=== PATIENT | female | born 1935 | race Caucasian/White ===

== ENCOUNTER 2019-06-05 17:19 | Inpatient (IN) | payer MEDICARE, MEDICAID ==
[~2019-06-05] VITALS: Ht 160 cm; Wt 77.0 kg
--- NOTE | 2019-06-05 21:52 | HPEPDOC ---
[facility] Medical History & Physical Date of Admission Jun 05, 2019 Date of Service: Jun 05, 2019 Attending Physician: RUBEN CRAIG MD History and Physical TIME OF SERVICE: 11:25 PM CHIEF COMPLAINT: Pain with urination HISTORY OF PRESENT ILLNESS: This is an 83-year-old female who initially presented to [facility] with complaints of burning with urination for 3 or 4 days associated with blood in her urine for 2 days. She denies having associated stomach pain, fever, chills, nausea, vomiting, diarrhea, or shortness of breath. She has a chronic cough which she attributes to COPD that has not changed from her baseline. At [facility] she received 2 units of PRBCs; CT of the abdomen identified a possible mass in the bladder, therefore, they requested transfer for urological eval. REVIEW OF SYSTEMS: 12 point review of systems negative except as listed in HPI PAST MEDICAL/ SURGICAL HISTORY: COPD Chronic HTN Dyslipidemia Hyperthyroidism Cataract surgery SOCIAL HISTORY: She smokes. She doesn't drink FAMILY HISTORY: She denies having a family history of bladder or kidney problems ALLERGIES: Please see below. HOME MEDICATIONS: Please see below. PHYSICAL EXAMINATION: Vital Signs Date Time Temp Pulse Resp B/P (MAP) Pulse Ox O2 Delivery O2 Flow Rate FiO2 06/05/19 22:00 97.8 104 18 124/69 (87) 95 Nasal Cannula 3.0 GEN: well-nourished / well developed/ NAD INTEGUMENT: not flushed HEENT: NCAT / lips acyanotic /mucus membranes moist and pink CVS: RRR/NMRG/ radial pulses intact / no lower extremity edema LUNGS: end expiratory rhonchi ABDOMEN: Contour (obese) / soft & not tender with palpation MSK/EXTREMITIES: range of motion intact in all 4 extremities NEURO: CN 2-12 are grossly intact / speech is not dysarthric PSYCH: alert and oriented to person place and time/ able to understand and follow all commands LABORATORY DATA: Laboratory Tests IMAGING: see HPI ASSESSMENT: Ms. Villeda is an 83-year-old with history of COPD, HTN, hyperthyroidism and dyslipidemia who is admitted for evaluation of hematuria. PLAN: 1. Hematuria with possible bladder mass Risk factor for bladder CA is tobacco abuse Plan: Admit to medical floor/urology consult/nothing by mouth with IV fluids for possible surgery tomorrow / hold ASA / c/w levofloxacin 2. Anemia 2/2 hematuria. Iron studies unlikely to be accurate post transfusion - f/u CBC and keep Hg >7 3. Stable COPD - budesonide, ipratropium/albuterol / incentive spirometer 4. Chronic HTN - HTCZ, losartan 5. Hyperthyroidism - methimazole 6. Dyslipidemia - pravastatin 7. Tobacco abuse - nicotine patch / smoking cessation education DVT PROPHYLAXIS: SCDs DISPOSITION: likely home after more than 2 midnight's stay / will consult PT for early mobilization to reduce the risk of deconditioning Home Medications Scheduled Aspirin (Aspirin EC) 81 Mg Tablet.dr, 81 MG PO DAILY Budesonide (Budesonide) 0.5 Mg/2 Ml Ampul.neb, 0.5 MG INH BID STARTED AT [facility] Calcium Carbonate/Vitamin D3 (Calcium 500-Vit D3 400 Tablet) 1 Each Tablet, 1 TAB PO DAILY Hydrochlorothiazide (Hydrochlorothiazide) 25 Mg Tablet, 25 MG PO DAILY Ipratropium/Albuterol Sulfate (Iprat-Albut 0.5-3(2.5) mg/3 ml) 3 Ml Ampul.neb, 1 JC INH BID STARTED AT [facility] Levofloxacin in Dextrose 5 % (Levofloxacin 750 mg/150 ml-D5w) 750 Mg/150 Ml Piggyback, 750 MG IV ASDIRECTED EVERY 48 HOURS - STARTED AT [facility] Losartan Potassium (Losartan Potassium) 100 Mg Tablet, 100 MG PO DAILY Magnesium Oxide (Magnesium Oxide) 400 Mg Tablet, 400 MG PO DAILY Methimazole (Methimazole) 5 Mg Tablet, 5 MG PO DAILY [place]-3 Fatty Acids/Fish Oil (Fish Oil 1,000 mg Capsule) 1 Each Capsule, 1,000 MG PO DAILY Omeprazole (Omeprazole) 20 Mg Capsule.dr, 20 MG PO DAILY Potassium Chloride (Potassium Chloride) 10 Meq Capsule.er, 10 MEQ PO BID Pravastatin Sodium (Pravastatin Sodium) 40 Mg Tablet, 40 MG PO DAILY Scheduled PRN Ipratropium/Albuterol Sulfate (Combivent Respimat 20-100 Mcg) 4 Gm Mist.inhal, 1 PUFF INH QID PRN for SHORTNESS OF BREATH Ipratropium/Albuterol Sulfate (Iprat-Albut 0.5-3(2.5) mg/3 ml) 3 Ml Ampul.neb, 1 JC INH Q6H PRN for SHORTNESS OF BREATH STARTED AT [facility] Allergies Coded Allergies: atorvastatin (Verified Adverse Reaction, Mild, MUSCLE ACHES, 06/05/19) A-FIB/CHADSVASC A-FIB History Current/History of A-Fib/PAF?: No Current PO Anticoag Therapy: No RUBEN CRAIG MD Jun 05, 2019 21:52
[2019-06-05 22:00] VITALS: BP 124/69
[2019-06-05] MEDS ORDERED: ACETAMINOPHEN TAB 650MG DOSE (2X325MG) PO PRN (22:00)
[2019-06-05] MEDS ORDERED: LOSA100T50 PO (22:06)
[2019-06-05] MEDS ORDERED: HYDR25TAB PO (22:06)
[2019-06-05] MEDS ORDERED: POTA10CA32 PO (22:06)
[2019-06-05] MEDS ORDERED: METH25TAB PO (22:06)
[2019-06-05] MEDS ORDERED: ASPI81TA26 PO (22:06)
[2019-06-05] MEDS ORDERED: MAGN400T2 PO (22:06)
[2019-06-05] MEDS ORDERED: PRAV40TA2 PO (22:06)
[2019-06-05] MEDS ORDERED: CALC500T25 PO (22:06)
[2019-06-05] MEDS ORDERED: COMBAER6 INH (22:06)
[2019-06-05] MEDS ORDERED: OMEP-218 PO (22:06)
[2019-06-05] MEDS ORDERED: FISH1000 PO (22:06)
[2019-06-05 22:22] LABS: HEMATOCRIT 30.3 % (36.0-47.0); HEMOGLOBIN 9.2 g/dl (12.0-15.5); MEAN CORPUSCULAR HEMOGLOBIN 22.4 pg (27.0-33.0); MEAN CORPUSCULAR HGB CONC 30.4 g/dl (32.0-36.5); MEAN CORPUSCULAR VOLUME 73.9 fl (80.0-96.0); PLATELET COUNT, AUTOMATED 285 10^3/uL (150-450)
[2019-06-05] MEDS ORDERED: IPRA0.00 INH ×2 (22:24)
[2019-06-05] MEDS ORDERED: BUDE0.5S6 INH (22:24)
[2019-06-05] MEDS ORDERED: LEVO1INJ27 IV (22:24)
[2019-06-05 22:33] LABS: INR 1.12; PROTHROMBIN TIME 14.1 SECONDS (11.8-14.0)
[2019-06-05 22:46] LABS: ALBUMIN 2.7 GM/DL (3.2-5.2); BILIRUBIN,TOTAL 0.8 MG/DL (0.2-1.0); CALCIUM LEVEL 7.9 MG/DL (8.8-10.2); CREATININE FOR GFR 1.45 MG/DL (0.55-1.30); GLOMERULAR FILTRATION RATE 36.9 (>32); POTASSIUM SERUM 4.7 MEQ/L (3.5-5.1); TOTAL PROTEIN 5.8 GM/DL (6.4-8.2)
--- NOTE | 2019-06-05 23:07 | SMCUROLCON ---
Urology Consultation General Date of Consultation 06/05/19 Reason For Consultation This patient is seen for Hematuria. History of Present Illness This is an 83 y/o F w/ a PMH significant for COPD, HTN, and HL, presenting as a transfer from OSH for gross hematuria. The patient notes that she started having hematuria 2 days ago and had never had this previously. She also noted mild dysuria at the time. She is a current smoker, noting that she has smoked for several years but quit for a brief period. At OSH, her Hb trended down from 9.7 yesterday to 7.9 today. She was transfused 2u PRBC and given the ongoing hematuria, a transfer was requested. She has no prior urologic hx. A noncontrast CT A/P was done prior to transfer which was negative for kidney stones, but notable for b/l renal cysts and a collection of material at the base of the bladder. Past Medical History Medical History see HPI Surgical Hstory cholecystectomy Medications Current Medications Current Medications Medications (Trade) Dose Ordered Sig/Dong Route PRN Reason Start Time Stop Time Status Last Admin Dose Admin Acetaminophen (Tylenol Tab) 650 mg Q4H PRN PO PAIN OR FEVER 06/05/19 22:00 Docusate Sodium (Colace) 100 mg BID PO 06/06/19 09:00 Home Med (Med Rec Complete!) ASDIRECTED XX 06/05/19 22:30 06/05/19 22:26 DC Lactated Ringer's 1,000 ml @ 70 mls/hr [id number] IV 06/05/19 22:00 Allergies Allergies: Coded Allergies: atorvastatin (Verified Adverse Reaction, Mild, MUSCLE ACHES, 06/05/19) Review of Systems Constitutional: Denies: Fever, Chills, Sweats, Weakness, Malaise ENT: Denies: Head Aches, Sore Throat, Epistaxis Skin: Denies: Rash, Lesions, Breakdown, Nail Changes Pulmonary: Reports: Cough Cardiovascular: Denies Chest Pain, Denies Palpitations Gastrointestinal: Denies: Nausea, Vomiting, Abdominal Pain Genitourinary: Reports: Dysuria, Hematuria Musculoskeletal: Denies: Neck Pain, Back Pain Neurological: Denies: Weakness, Numbness, Incoordination, Change in Speech Psych: Reports: Mood Normal Physical Examination General Exam: Alert, Cooperative, No Acute Distress ENT EXAM: Atraumatic Chest Exam: Normal air movement Heart Exam: Rate Normal, Regular Rhythm Abdomen Exam: Soft; No: Tenderness, Mass Female Exam 16Fr catheter in place which appears clotted off; bright red urine in drainage bag Skin Exam: Nl turgor and temperature Neuro Exam: Normal Speech Psych Exam: Mental status NL, Mood NL Laboratory Data 24H Labs Laboratory Tests 2 06/05/19 22:10: Nucleated Red Blood Cells % (auto) 0.0, Prothrombin Time 14.1H, Prothromb Time International Ratio 1.12, Anion Gap 6L, Glomerular Filtration Rate 36.9, Calcium Level 7.9L, Iron Level 188H, Total Iron Binding Capacity 285, Transferrin % Saturation 66.0H, Ferritin 6L, Total Bilirubin 0.8, Aspartate Amino Transf ( T/SGOT) 13, Alanine Aminotransferase (ALT/SGPT) 13, Alkaline Phosphatase 86, Total Protein 5.8L, Albumin 2.7L, Albumin/Globulin Ratio 0.87L CBC/BMP Laboratory Tests 06/05/19 22:10 Assessment This is an 83 y/o F transferred from OSH for gross hematuria and drop in Hb. Repeat Hb here is 9.2. I changed out her catheter for a 24Fr 3-way catheter and manually irrigated the bladder w/ approximately 200cc of normal saline. I did not get any clots out. CBI was started and the catheter appeared to drain well. The cause of her hematuria is either a UTI or bladder tumor. Given her long smoking hx and severity of hematuria, I am concerned it is a bladder tumor and she might have to go to the OR to stop the hematuria. Plan - cont abx for possible UTI - cont CBI and titrate irrigation so that the outflow is pink or clearer - recommend checking Hb q6 - NPO at midnight - patient added on for possible cystoscopy, clot evacuation, resection of bladder tumor tomorrow KRYSTIN FORRESTER MD Jun 05, 2019 23:07
[2019-06-05] MEDS: LR 1,000 ML IV SCH (23:13)
[2019-06-06] VITALS (10 sets, daily range): BP systolic 102–110; BP diastolic 49–57
[2019-06-06] MEDS ORDERED: IPRATROPIUM 0.5MG/ALBUTEROL 2.5MG INH SOL UD 3ML (DUONEB)(J7620) INH PRN (01:30)
[2019-06-06 06:30] LABS: HEMATOCRIT 27.9 % (36.0-47.0); HEMOGLOBIN 8.6 g/dl (12.0-15.5); MEAN CORPUSCULAR HEMOGLOBIN 22.8 pg (27.0-33.0); MEAN CORPUSCULAR HGB CONC 30.8 g/dl (32.0-36.5); PLATELET COUNT, AUTOMATED 275 10^3/uL (150-450); RED BLOOD COUNT 3.77 10^6/uL (4.00-5.40); WHITE BLOOD COUNT 9.6 10^3/uL (4.0-10.0)
[2019-06-06 06:56] LABS: CALCIUM LEVEL 7.7 MG/DL (8.8-10.2); CREATININE FOR GFR 1.02 MG/DL (0.55-1.30); GLOMERULAR FILTRATION RATE 55.4 (>32); MAGNESIUM LEVEL 2.2 MG/DL (1.8-2.4)
--- NOTE | 2019-06-06 07:33 | IPNPDOC ---
Subjective Review oF Systems Chief Complaint The patient is a 83-year-old female admitted with a reason for visit of Hematuria. Events since Last Encounter No acute events o/n. Patient denies pain. Catheter drained well o/n w/o need for manual irrigation. Objective Physical Examination General Exam: Alert, Cooperative, No Acute Distress ENT EXAM: Atraumatic Chest Exam: Normal air movement Heart Exam: Positive: Rate Normal ABDOMEN EXAM: Soft; No: Tenderness Neuro Exam: Normal Speech Psych Exam: Mental status NL, Mood NL Other physical findings 3-way catheter in place w/ clear yellow output and CBI on minimal drip Vital Signs/I&O Vital Signs Date Time Temp Pulse Resp B/P (MAP) Pulse Ox O2 Delivery O2 Flow Rate FiO2 06/06/19 06:00 98.4 88 18 110/54 (72) 94 Nasal Cannula 3.0 I&O- Last 24 Hours up to 6 AM 06/06/19 05:59 Intake Total 300 ml Output Total 500 ml Balance -200 ml Laboratory Data Labs 24H Laboratory Tests 2 06/05/19 22:10: Nucleated Red Blood Cells % (auto) 0.0, Prothrombin Time 14.1H, Prothromb Time International Ratio 1.12, Anion Gap 6L, Glomerular Filtration Rate 36.9, Calcium Level 7.9L, Iron Level 188H, Total Iron Binding Capacity 285, Transferrin % Saturation 66.0H, Ferritin 6L, Total Bilirubin 0.8, Aspartate Amino Transf (AST/SGOT) 13, Alanine Aminotransferase (ALT/SGPT) 13, Alkaline Phosphatase 86, Total Protein 5.8L, Albumin 2.7L, Albumin/Globulin Ratio 0.87L 06/06/19 06:03: Nucleated Red Blood Cells % (auto) 0.0, Anion Gap 5L, Glomerular Filtration Rate 55.4, Calcium Level 7.7L, Magnesium Level 2.2 CBC/BMP Laboratory Tests 06/05/19 22:10 06/06/19 06:03 Assessment/Plan Date Seen The patient was seen on 06/06/19. Patient Summary This is an 83 y/o F transferred from [facility] last night for gross hematuria. Her urine is clearing up w/ minimal CBI. Hb this morning is 8.6 from 9.2 yesterday evening. I called [facility] lab for final result on her urine culture and it was reported as NO GROWTH. Plan/VTE VTE Prophylaxis Ordered?: Yes VTE Exclusion Mechanical Proph: N/A:VTE Prophy Ordered Plan - clamp CBI and monitor - if hematuria worsens, turn back on - keep NPO for now - possible OR later today for cystoscopy, clot evacuation, possible TURBT KRYSTIN FORRESTER MD Jun 06, 2019 07:33
[2019-06-06] MEDS: BUDESONIDE 0.5 MG/2 ML INHALATION SUSPENSION INH SCH ×2 (07:34→21:30)
[2019-06-06] MEDS: hydroCHLOROthiazide 25 MG TAB PO SCH (09:00)
[2019-06-06] MEDS: LOSARTAN 50 MG TAB PO SCH (09:00)
[2019-06-06] MEDS: NICOTINE 14 MG/24 HR TRANSDERMAL TD SCH (09:23)
[2019-06-06] MEDS: DOCUSATE SODIUM 100 MG CAP PO SCH ×2 (09:24→21:06)
[2019-06-06] MEDS: PRAVASTATIN 20 MG TAB PO SCH (09:24)
[2019-06-06] MEDS: POTASSIUM CHLORIDE 10 MEQ SR TABLET PO SCH ×2 (09:25→21:06)
[2019-06-06] MEDS: CALCIUM/VITAMIN D 500 MG TAB PO SCH (09:25)
[2019-06-06] MEDS: OMEPRAZOLE 20 MG CAP PO SCH (09:25)
[2019-06-06] MEDS: LR 1,000 ML IV SCH (13:02)
--- NOTE | 2019-06-06 16:47 | IPNPDOC ---
Text Note Date of Service The patient was seen on 06/06/19. NOTE Subjective: -No complaints Objective: GEN: well-nourished, NAD Skin: No lesions or rashes HEENT: NCAT, PERRLA, EOMI, anicteric, MMM CVS: RRR, no mrg LUNGS: CTAB ABDOMEN: Normoactive, soft, NTND Ext: WWP, no LE edema NEURO: CN 2-12 are grossly intact, speech not dysarthric, 5/5 strength throughout PSYCH: alert and oriented to person place and time/ able to understand and fol low all commands LABORATORY DATA: WBC 9.6 hgb 8.6 Cr 1.02 ASSESSMENT: Ms. Villeda is an 83-year-old with history of COPD, HTN, hyperthyroidism and dyslipidemia who is admitted for evaluation of hematuria. PLAN: 1. Hematuria with possible bladder mass -continue nothing by mouth with IV fluids -continue holding ASA -c/w levofloxacin -This morning urology clamped CBI and monitored as hematuria had improved -Plan as of this afternoon was to keep her NPO for possible cystoscopy, clot evacuation, possible TURBT 2. COPD - budesonide, ipratropium/albuterol / incentive spirometer 3. Chronic HTN - HTCZ, losartan 4. Hyperthyroidism - methimazole 5. Dyslipidemia - pravastatin 6. Tobacco abuse - nicotine patch / smoking cessation education DVT PROPHYLAXIS: SCDs DISPOSITION: ongoing urology evaluation, PT/OT pending, medsurg VS,Fishbone, I+O VS, Fishbone, I+O Laboratory Tests 06/05/19 22:10 06/06/19 06:03 Vital Signs Date Time Temp Pulse Resp B/P (MAP) Pulse Ox O2 Delivery O2 Flow Rate FiO2 06/06/19 14:00 98.4 84 17 108/57 (74) 94 Nasal Cannula 2.0 I&O- Last 24 Hours up to 6 AM 06/06/19 06:00 Intake Total 720 ml Output Total 1500 ml Balance -780 ml POPPY BUNDY MD Jun 06, 2019 16:47
[2019-06-06] MEDS ORDERED: ceFAZolin SOD 2 GM in IV 1 EA IV ONE (17:00)
[2019-06-06] MEDS ORDERED: ceFAZolin 2 GM/D5W 50 ML IV BAG (J0690 PER 500MG) As Ordered ONE (17:07)
[2019-06-06] MEDS ORDERED: ROCURONIUM BROMIDE 50 MG/5 ML VIAL As Ordered ONE (17:10)
[2019-06-06] MEDS ORDERED: PHENYLephrine HCL 500 MCG/5 ML (100MCG/ML) SYRINGE (J2370) As Ordered ONE (17:10)
[2019-06-06] MEDS ORDERED: LIDOCAINE 2% 100MG/5ML SDV (FOR ANES.) As Ordered ONE (17:10)
[2019-06-06] MEDS ORDERED: propofoL 200 MG/20 ML VIAL As Ordered ONE (17:10)
[2019-06-06] MEDS ORDERED: fentaNYL 100 MCG/2 ML INJECTION (J3010) As Ordered ONE ×2 (17:10→17:25)
[2019-06-06] MEDS ORDERED: MIDAZOLAM INJ 2MG/2ML VIAL (J2250 PER 1MG) As Ordered ONE (17:10)
[2019-06-06] MEDS ORDERED: dexameTHASONE 4 MG/ML 1ML VIAL (J1100 PER 1MG) As Ordered ONE (17:19)
[2019-06-06] MEDS ORDERED: ONDANSETRON 4MG/2ML VIAL As Ordered ONE (17:20)
[2019-06-06] MEDS ORDERED: SUGAMMADEX SODIUM 500 MG/5 ML VIAL (BRIDION) As Ordered ONE (17:24)
[2019-06-06] MEDS ORDERED: ACETAMINOPHEN 1000MG 100ML IV BTL (OFIRMEV) (J0131 PER 10MG) As Ordered ONE (17:26)
[2019-06-06] MEDS ORDERED: IPRATROPIUM 0.5MG/ALBUTEROL 2.5MG INH SOL UD 3ML (DUONEB)(J7620) As Ordered ONE (18:05)
[2019-06-06] MEDS ORDERED: IPRATROPIUM 0.5MG/ALBUTEROL 2.5MG INH SOL UD 3ML (DUONEB)(J7620) NEB SCH (18:15)
[2019-06-06] MEDS ORDERED: fentaNYL 100 MCG/2 ML INJECTION (J3010) IV PRN (18:15)
[2019-06-06] MEDS ORDERED: ONDANSETRON 4MG/2ML VIAL IV PRN (18:15)
[2019-06-06] MEDS ORDERED: oxyCODONE 5MG TAB PO PRN (18:15)
[2019-06-06] MEDS ORDERED: LR 1,000 ML IV SCH (18:15)
[2019-06-07 00:45] VITALS: BP 103/55
[2019-06-07 05:00] VITALS: BP 113/60
[2019-06-07] MEDS: BUDESONIDE 0.5 MG/2 ML INHALATION SUSPENSION INH SCH ×2 (07:09→20:21)
--- NOTE | 2019-06-07 08:36 | IPNPDOC ---
Subjective Review oF Systems Chief Complaint The patient is a 83-year-old female admitted with a reason for visit of Hematuria. Events since Last Encounter No acute events o/n. Denies pain. No n/v. No f/c/ns. Objective Physical Examination General Exam: Alert, Cooperative, No Acute Distress ENT EXAM: Atraumatic ABDOMEN EXAM: Soft; No: Tenderness Skin Exam: Nl turgor and temperature Neuro Exam: Normal Speech Psych Exam: Mental status NL, Mood NL Other physical findings catheter draining clear yellow urine Vital Signs/I&O Vital Signs Date Time Temp Pulse Resp B/P (MAP) Pulse Ox O2 Delivery O2 Flow Rate FiO2 06/07/19 05:00 97.6 79 17 113/60 (77) 96 Nasal Cannula 2.0 I&O- Last 24 Hours up to 6 AM 06/07/19 06:00 Intake Total 1860 ml Output Total 1250 ml Balance 610 ml Assessment/Plan Date Seen The patient was seen on 06/07/19. Patient Summary This is an 83 y/o F transferred from an OSH for gross hematuria and clot retention, now POD1 s/p cysto and bladder biopsies. Her cysto was negative for tumors or active bleeding. It was notable for an erythematous patch of tissue near the dome, which might be CIS. This was biopsied and cauterized. Since her hematuria has resolved, she is clear for discharge from the urologic standpoint. Plan/VTE VTE Prophylaxis Ordered?: Yes VTE Exclusion Mechanical Proph: N/A:VTE Prophy Ordered Plan - ok for discharge - patient should keep catheter in at discharge to aid in bladder healing - my office will schedule f/u next week for catheter removal and pathology results KRYSTIN FORRESTER MD Jun 07, 2019 08:36
[2019-06-07] MEDS: NICOTINE 14 MG/24 HR TRANSDERMAL TD SCH (08:37)
[2019-06-07] MEDS: PRAVASTATIN 20 MG TAB PO SCH (08:37)
[2019-06-07] MEDS: CALCIUM/VITAMIN D 500 MG TAB PO SCH (08:37)
[2019-06-07] MEDS: OMEPRAZOLE 20 MG CAP PO SCH (08:37)
[2019-06-07] MEDS: DOCUSATE SODIUM 100 MG CAP PO SCH ×2 (08:37→20:08)
[2019-06-07] MEDS: hydroCHLOROthiazide 25 MG TAB PO SCH (08:38)
[2019-06-07] MEDS: LOSARTAN 50 MG TAB PO SCH (08:38)
[2019-06-07] MEDS: POTASSIUM CHLORIDE 10 MEQ SR TABLET PO SCH ×2 (08:38→20:08)
[2019-06-07] MEDS ORDERED: LevoFLOXacin IV 750 MG in IV 1 EA IV SCH (09:00)
[2019-06-07 14:00] VITALS: BP 103/51
--- NOTE | 2019-06-07 17:50 | IPNPDOC ---
Text Note Date of Service The patient was seen on 06/07/19. NOTE Subjective: -No complaints this AM -Went to OR yesterday late afternoon, biopsy done Objective: GEN: well-nourished, NAD Skin: No lesions or rashes HEENT: NCAT, PERRLA, EOMI, anicteric, MMM CVS: RRR, no mrg LUNGS: CTAB ABDOMEN: Normoactive, soft, NTND : mcknight in place Ext: WWP, no LE edema NEURO: CN 2-12 are grossly intact, speech not dysarthric, 5/5 strength throughout PSYCH: alert and oriented to person place and time/ able to understand and follow all commands LABORATORY DATA: pending AM labs ASSESSMENT: Ms. Villeda is an 83-year-old with history of COPD, HTN, hyperthyroidism and dyslipidemia who is admitted for evaluation of hematuria now s/p PLAN: 1. Hematuria with possible bladder mass -continue holding ASA -dc levofloxacin without evidence of infection -s/p cystoscopy and biopsy -per Dr. Calixto to go home with mcknight and follow up in the outpatient setting 2. COPD - budesonide, ipratropium/albuterol / incentive spirometer 3. Chronic HTN - HTCZ, losartan 4. Hyperthyroidism - methimazole 5. Dyslipidemia - pravastatin 6. Tobacco abuse - nicotine patch / smoking cessation education DVT PROPHYLAXIS: SCDs Diet: Regular DISPOSITION: PT/OT pending, medsurg VS,Fishbone, I+O VS, Fishbone, I+O Vital Signs Date Time Temp Pulse Resp B/P (MAP) Pulse Ox O2 Delivery O2 Flow Rate FiO2 06/07/19 05:00 97.6 79 17 113/60 (77) 96 Nasal Cannula 2.0 I&O- Last 24 Hours up to 6 AM 06/07/19 06:00 Intake Total 1860 ml Output Total 1250 ml Balance 610 ml POPPY BUNDY MD Jun 07, 2019 07:49
--- NOTE | 2019-06-07 18:46 | RO ---
DATE OF PROCEDURE: 06/06/2019 PREPROCEDURE DIAGNOSIS: Gross hematuria. POSTPROCEDURE DIAGNOSIS: Gross hematuria. PROCEDURE: Cystoscopy with bladder biopsies. . SURGEON: Rhett Calixto MD [employer]: None. ANESTHESIA: General. OPERATIVE INDICATIONS: This is an 83-year-old female who was transferred in from an outside hospital yesterday evening with gross hematuria and clot retention. Her hemoglobin level has dropped two points. Due to the severity of the gross hematuria and her long history of smoking, there is concern that she might have a bladder tumor. She was brought to the operating room today for the above listed procedure. DESCRIPTION OF PROCEDURE: The patient was brought to the operating room and general anesthesia was induced. Prophylactic antibiotics were infused. She was then placed in the dorsal lithotomy position and prepped and draped in the usual sterile fashion. A rigid cystoscope was then inserted into the urethral meatus and advanced to the bladder. The bladder was then thoroughly examined with both the 30-degree and the 70-degree lenses, and of note, there was no active bleeding at the time. There were no clots inside the bladder. Bilateral ureteral orifices were orthotopic and both effluxed clear urine. Of note, the bladder did appear inflamed, and there was a moderate-sized erythematous patch on the upper posterior wall near the dome, which could be potentially a carcinoma in situ. No other abnormal lesions or tumors were seen inside the bladder. I did obtain biopsies of the erythematous patch to be sent for pathologic analysis. I then cauterized the area of the biopsies using a Bugbee until there was good hemostasis. Once satisfied with hemostasis, the cystoscope was removed, and a 18-[place] Johnson catheter was inserted into the bladder. The balloon was filled with 10 mL of sterile water and then the catheter was connected to gravity drainage. This marked the conclusion of the procedure. The patient was then taken out of the dorsal lithotomy position, awakened from anesthesia and transported to the recovery room in stable condition. Estimated blood loss: 10 mL. Complications: None. Specimens: Bladder biopsies. PLAN: Assuming the patient's hemoglobin is stable and her urine is clear tomorrow, she can be discharged home with a catheter in place. We will have her followup in the urology clinic in approximately 1 week for catheter removal and to discuss her pathology results. KIMBER
[2019-06-07 22:00] VITALS: BP 115/58
[2019-06-08] VITALS (8 sets, daily range): BP systolic 102–130; BP diastolic 50–88; O2SAT 91–94
[2019-06-08 07:19] LABS: HEMATOCRIT 28.7 % (36.0-47.0); HEMOGLOBIN 8.8 g/dl (12.0-15.5); MEAN CORPUSCULAR HEMOGLOBIN 23.3 pg (27.0-33.0); MEAN CORPUSCULAR HGB CONC 30.7 g/dl (32.0-36.5); MEAN CORPUSCULAR VOLUME 75.9 fl (80.0-96.0); PLATELET COUNT, AUTOMATED 270 10^3/uL (150-450); RED BLOOD COUNT 3.78 10^6/uL (4.00-5.40); WHITE BLOOD COUNT 9.3 10^3/uL (4.0-10.0)
[2019-06-08] MEDS: BUDESONIDE 0.5 MG/2 ML INHALATION SUSPENSION INH SCH ×2 (07:36→19:33)
[2019-06-08 07:47] LABS: BLOOD UREA NITROGEN 11 MG/DL (7-18); CARBON DIOXIDE LEVEL 31 MEQ/L (21-32); CHLORIDE LEVEL 107 MEQ/L (98-107); CREATININE FOR GFR 0.79 MG/DL (0.55-1.30); GLOMERULAR FILTRATION RATE > 60.0 (>32); GLUCOSE, FASTING 80 MG/DL (70-100); POTASSIUM SERUM 3.8 MEQ/L (3.5-5.1); SODIUM LEVEL 142 MEQ/L (136-145)
[2019-06-08] MEDS: LOSARTAN 50 MG TAB PO SCH ×2 (09:00→09:13)
[2019-06-08] MEDS: CALCIUM/VITAMIN D 500 MG TAB PO SCH (09:12)
[2019-06-08] MEDS: OMEPRAZOLE 20 MG CAP PO SCH (09:12)
[2019-06-08] MEDS: PRAVASTATIN 20 MG TAB PO SCH (09:12)
[2019-06-08] MEDS: DOCUSATE SODIUM 100 MG CAP PO SCH ×2 (09:12→21:24)
[2019-06-08] MEDS: hydroCHLOROthiazide 25 MG TAB PO SCH (09:13)
[2019-06-08] MEDS: POTASSIUM CHLORIDE 10 MEQ SR TABLET PO SCH ×2 (09:13→21:24)
[2019-06-08] MEDS: NICOTINE 14 MG/24 HR TRANSDERMAL TD SCH (09:18)
--- NOTE | 2019-06-08 11:27 | REP ---
CHEST, SINGLE VIEW: Single view of the chest is performed. I have no prior study for comparison. Prominent interstitial densities in the lung bases, probably represent fibrotic change, although some degree of acute interstitial edema or pneumonitis cannot be excluded. Cardiac silhouette is mildly prominent. There is calcification of the thoracic aorta. Right paratracheal soft tissue is present, with deviation of the trachea to the left. This is compatible with a right paratracheal mass. Also an oval nodular density in the right infrahilar region medially measures about 3.8 cm in diameter. IMPRESSION: Bibasilar interstitial opacities of indeterminate age. Right paratracheal mass and also suspect right infrahilar nodule. Electronically Signed by Prasanth Bauer MD 06/08/2019 11:29 A
--- NOTE | 2019-06-08 14:28 | REP ---
CT CHEST WITHOUT IV CONTRAST: CT chest performed without IV contrast. Sagittal and coronal reconstruction images are performed. The right paratracheal mass seen on today's chest radiograph corresponds to an enlarged right lobe of thyroid which demonstrates diffuse heterogeneous density. Small partially calcified nodule is seen in the lower pole of the right lobe of the thyroid. Another is seen in the left lobe, which is only mildly enlarged. No significant mediastinal adenopathy is seen. No axillary adenopathy is seen. There is moderate atherosclerotic calcification of the thoracic aorta without aneurysm. The heart is not enlarged. There is no pericardial effusion. No pleural effusion is seen. Chronic fibrotic changes are seen scattered throughout both lungs. There is confluent mildly consolidated opacity in the posterior costophrenic sulci bilaterally as well as in the right middle lobe and lingula. These may represent areas of fibroatelectasis, but some degree of mild superimposed infiltrate cannot be excluded. No discrete pulmonary nodule is seen. A nodule in the lateral superior right kidney is somewhat lobulated and heterogeneous in density measuring 2.7 cm in diameter. This probably represents a complex cyst. Recommend further evaluation with ultrasound. IMPRESSION: Right paratracheal mass corresponds to an enlarged right lobe of thyroid extending into a substernal right paratracheal location. This deviates the trachea to the left. There is no evidence of significant mediastinal or axillary adenopathy. Mild scattered confluent parenchymal opacities in the posterior costophrenic sulci, right middle lobe and lingula may represent areas of fibroatelectasis. However, superimposed acute infiltrate cannot be excluded. A nodule in the lateral superior right kidney is somewhat lobulated and heterogeneous in density measuring 2.7 cm in diameter. This probably represents a complex cyst. Recommend further evaluation with ultrasound. Electronically Signed by Prasanth Bauer MD 06/08/2019 03:42 P
[2019-06-08] MEDS ORDERED: FUROSEMIDE 40MG/4ML VIAL (J1940) IV ONE (15:00)
--- NOTE | 2019-06-08 16:58 | IPNPDOC ---
Text Note Date of Service The patient was seen on 06/08/19. NOTE Subjective: -No complaints this AM -Continues to have mild hypoxemia and desaturation with ambulation Objective: GEN: well-nourished, NAD Skin: No lesions or rashes HEENT: NCAT, PERRLA, EOMI, anicteric, MMM CVS: RRR, no mrg LUNGS: CTAB, with diminished bases ABDOMEN: Normoactive, soft, NTND : mcknight in place Ext: WWP, bilateral ankle non-pitting LE edema NEURO: CN 2-12 are grossly intact, speech not dysarthric, 5/5 strength throughout PSYCH: alert and oriented to person place and time/ able to understand and follow all commands LABORATORY DATA: WBC 9.3 Hgb 8.8 Cr 0.79 ASSESSMENT: 83-year-old woman with history of COPD, HTN, hyperthyroidism and dyslipidemia who is admitted for evaluation of hematuria now s/p cystoscopy with course c/b persistent mild hypoxemia now on treatment for PNA likely CAP and mild diuresis after having received blood and fluids this admission with new hypoxemia. PLAN: Hypoxemic respiratory failure: with evidence of PNA likely CAP and possible volume overload given the recent volume of blood and fluids: -lasix 40 IV once -start levaquin 40 Q48H for CAP -titrate O2 to sats >88% -Imaging in addition to likely PNA also noted an enlarged R thyroid lobe with calcifications, likely not new in my discussion with her daughter in law and patient being on methamazole. Has endocrine follow up in 06/2019 Hematuria with possible bladder mass -continue holding ASA -dc levofloxacin without evidence of infection -s/p cystoscopy and biopsy -per Dr. Calixto to go home with roxanna and follow up in the outpatient setting 2. COPD - budesonide, ipratropium/albuterol / incentive spirometer 3. Chronic HTN - HTCZ, losartan 4. Hyperthyroidism - methimazole 5. Dyslipidemia - pravastatin 6. Tobacco abuse - nicotine patch / smoking cessation education DVT PROPHYLAXIS: SCDs Diet: Regular DISPOSITION: medsurg, managing hypoxemia before discharge home CXR: Bibasilar interstitial opacities of indeterminate age. Right paratracheal mass and also suspect right infrahilar nodule. CT chest: The right paratracheal mass seen on today's chest radiograph corresponds to an enlarged right lobe of thyroid which demonstrates diffuse heterogeneous density. Small partially calcified nodule is seen in the lower pole of the right lobe of the thyroid. Another is seen in the left lobe, which is only mildly enlarged. No significant mediastinal adenopathy is seen. No axillary adenopathy is seen. There is moderate atherosclerotic calcification of the thoracic aorta without aneurysm. The heart is not enlarged. There is no pericardial effusion. No pleural effusion is seen. Chronic fibrotic changes are seen scattered throughout both lungs. There is confluent mildly consolidated opacity in the posterior costophrenic sulci bilaterally as well as in the right middle lobe and lingula. These may represent areas of fibroatelectasis, but some degree of mild superimposed infiltrate cannot be excluded. No discrete pulmonary nodule is seen. A nodule in the lateral superior right kidney is somewhat lobulated and heterogeneous in density measuring 2.7 cm in diameter. This probably represents a complex cyst. Recommend further evaluation with ultrasound. IMPRESSION: Right paratracheal mass corresponds to an enlarged right lobe of thyroid extending into a substernal right paratracheal location. This deviates the trachea to the left. There is no evidence of significant mediastinal or axillary adenopathy. Mild scattered confluent parenchymal opacities in the posterior costophrenic sulci, right middle lobe and lingula may represent areas of fibroatelectasis. However, superimposed acute infiltrate cannot be excluded. A nodule in the lateral superior right kidney is somewhat lobulated and heterogeneous in density measuring 2.7 cm in diameter. This probably represents a complex cyst. Recommend further evaluation with ultrasound. VS,Fishbone, I+O VS, Fishbone, I+O Laboratory Tests 06/08/19 06:41 Vital Signs Date Time Temp Pulse Resp B/P (MAP) Pulse Ox O2 Delivery O2 Flow Rate FiO2 06/08/19 14:00 98.2 83 17 122/65 (84) 94 Room Air 06/08/19 10:00 1.0 I&O- Last 24 Hours up to 6 AM 06/08/19 06:00 Intake Total 600 ml Output Total 1700 ml Balance -1100 ml POPPY BUNDY MD June 08, 2019 16:58
[2019-06-09] VITALS (13 sets, daily range): BP systolic 74–133; BP diastolic 40–77; O2SAT 85–93
[2019-06-09 06:51] LABS: HEMATOCRIT 30.5 % (36.0-47.0); HEMOGLOBIN 9.4 g/dl (12.0-15.5); MEAN CORPUSCULAR HEMOGLOBIN 23.1 pg (27.0-33.0); MEAN CORPUSCULAR HGB CONC 30.8 g/dl (32.0-36.5); MEAN CORPUSCULAR VOLUME 74.9 fl (80.0-96.0); PLATELET COUNT, AUTOMATED 278 10^3/uL (150-450); RED BLOOD COUNT 4.07 10^6/uL (4.00-5.40)
[2019-06-09 07:08] LABS: BLOOD UREA NITROGEN 11 MG/DL (7-18); CALCIUM LEVEL 7.9 MG/DL (8.8-10.2); CARBON DIOXIDE LEVEL 33 MEQ/L (21-32); CHLORIDE LEVEL 102 MEQ/L (98-107); CREATININE FOR GFR 0.88 MG/DL (0.55-1.30); GLOMERULAR FILTRATION RATE > 60.0 (>32); GLUCOSE, FASTING 83 MG/DL (70-100); SODIUM LEVEL 141 MEQ/L (136-145)
[2019-06-09] MEDS: BUDESONIDE 0.5 MG/2 ML INHALATION SUSPENSION INH SCH ×2 (07:14→19:45)
[2019-06-09] MEDS: NICOTINE 14 MG/24 HR TRANSDERMAL TD SCH (08:59)
[2019-06-09] MEDS: hydroCHLOROthiazide 25 MG TAB PO SCH (09:00)
[2019-06-09] MEDS: CALCIUM/VITAMIN D 500 MG TAB PO SCH (09:00)
[2019-06-09] MEDS ORDERED: FUROSEMIDE 40MG/4ML VIAL (J1940) IV ONE (09:00)
[2019-06-09] MEDS: POTASSIUM CHLORIDE 10 MEQ SR TABLET PO SCH ×2 (09:00→20:00)
[2019-06-09] MEDS ORDERED: LevoFLOXacin IV 750 MG in IV 1 EA IV SCH (09:00)
[2019-06-09] MEDS: DOCUSATE SODIUM 100 MG CAP PO SCH ×2 (09:00→19:59)
[2019-06-09] MEDS: PRAVASTATIN 20 MG TAB PO SCH (09:00)
[2019-06-09] MEDS: LOSARTAN 50 MG TAB PO SCH (09:00)
[2019-06-09] MEDS: OMEPRAZOLE 20 MG CAP PO SCH (09:00)
[2019-06-09] MEDS ORDERED: POTASSIUM CHLORIDE 10 MEQ SR TABLET PO ONE ×2 (09:00→11:00)
[2019-06-09] MEDS ORDERED: MOM 30ML SUSPENSION UDC PO ONE (11:00)
[2019-06-09] MEDS ORDERED: FLEET ENEMA PR ONE (13:00)
--- NOTE | 2019-06-09 13:20 | DS.PDOC ---
Discharge Summary General Date of Admission Jun 05, 2019 at 21:34 Date of Discharge 06/09/2019 Attending Physician: POPPY BUNDY MD Specialist/Consultants Involve: KRYSTIN FORRESTER MD Discharge Summary PROCEDURES PERFORMED DURING STAY: Cystoscopy with bladder biopsy on 06/05 ADMITTING DIAGNOSES: 1. Hematuria DISCHARGE DIAGNOSES: 1. Acute hematuria with ongoing urological evaluation 2. COPD 3. HTN 4. HLD COMPLICATIONS/CHIEF COMPLAINT: Hematuria. HISTORY OF PRESENT ILLNESS: 83 y/o W w COPD, HTN, and HLD, smoker who was transferred from an OSH for acute gross hematuria of 2 days duration, without a history of such before or history of anticoagulation. She also noted mild dysuria and thus had UA/UCx at the OSH. At the OSH, her Hb trended down from 9.7 to 7.9 and was transfused 2u PRBC and given ongoing hematuria, a transfer to [facility] was requested. Of note, a noncontrast CT A/P was done prior to transfer was negative for kidney stones, but notable for b/l renal cysts and a collection of material at the base of the bladder. HOSPITAL COURSE: On arrival she had a 3 way mcknight placed with continuous CBI with improvement. She had cystoscopy on 06/[address] Forrester reported no obvious mass. Her OSH urine culture was ultimately negative and so empiric antibiotics were stopped. Per urology, we are now discharging her with the mcknight and she will follow up with urology outpatient. In the meantime, she had mild hypoxemia requiring 1-2L NC and had a CXR done that showed a bibasilar interstitial opacities, while mentioning a right paratracheal soft tissue density. Due to this, we had a follow up noncontrast CT chest that showed that the right paratracheal mass corresponds to an enlarged right lobe of thyroid extending into a substernal right paratracheal location. This deviates the trachea to the left without significant mediastinal or axillary adenopathy and some mild scattered confluent parenchymal opacities in the posterior costophrenic sulci, right middle lobe and lingula. At that time, given the significant amount of volume she received including 2u of pRBCs and fluids, I gave her lasix 40 IV with good effect and also started levaquin for probable CAP. Her hypoxemia resolved and she was evaluated by PT/OT that recommended discharge home with a script for a rolling walker for energy conservation. I am now discharging her home with 3 more days of levaquin for probable CAP, with the mcknight in, and will be seen by urology on 06/10 in clinic. DISCHARGE MEDICATIONS: Please see below. ALLERGIES: Please see below. PHYSICAL EXAMINATION ON DISCHARGE: VITAL SIGNS: Please see below. GEN: well-nourished, NAD Skin: No lesions or rashes HEENT: NCAT, PERRLA, EOMI, anicteric, MMM CVS: RRR, no mrg LUNGS: CTAB ABDOMEN: Normoactive, soft, NTND : mcknight in place draining clear yellow urine Ext: WWP, no LE edema NEURO: CN 2-12 are grossly intact, speech not dysarthric, 5/5 strength throughout PSYCH: alert and oriented to person place and time. LABORATORY DATA: Please see below. IMAGING: CXR: Prominent interstitial densities in the lung bases, probably represent fibrotic change, although some degree of acute interstitial edema or pneumonitis cannot be excluded. Cardiac silhouette is mildly prominent. There is calcification of the thoracic aorta. Right paratracheal soft tissue is present, with deviation of the trachea to the left. This is compatible with a right paratracheal mass. Also an oval nodular density in the right infrahilar region medially measures about 3.8 cm in diameter. IMPRESSION: Bibasilar interstitial opacities of indeterminate age. Right paratracheal mass and also suspect right infrahilar nodule. CT chest: The right paratracheal mass seen on today's chest radiograph corresponds to an enlarged right lobe of thyroid which demonstrates diffuse heterogeneous density. Small partially calcified nodule is seen in the lower pole of the right lobe of the thyroid. Another is seen in the left lobe, which is only mildly enlarged. No significant mediastinal adenopathy is seen. No axillary adenopathy is seen. There is moderate atherosclerotic calcification of the thoracic aorta without aneurysm. The heart is not enlarged. There is no pericardial effusion. No pleural effusion is seen. Chronic fibrotic changes are seen scattered throughout both lungs. There is confluent mildly consolidated opacity in the posterior costophrenic sulci bilaterally as well as in the right middle lobe and lingula. These may represent areas of fibroatelectasis, but some degree of mild superimposed infiltrate cannot be excluded. No discrete pulmonary nodule is seen. A nodule in the lateral superior right kidney is somewhat lobulated and heterogeneous in density measuring 2.7 cm in diameter. This probably represents a complex cyst. Recommend further evaluation with ultrasound. IMPRESSION: Right paratracheal mass corresponds to an enlarged right lobe of thyroid extending into a substernal right paratracheal location. This deviates the trachea to the left. There is no evidence of significant mediastinal or axillary adenopathy. Mild scattered confluent parenchymal opacities in the posterior costophrenic sulci, right middle lobe and lingula may represent areas of fibroatelectasis. However, superimposed acute infiltrate cannot be excluded. A nodule in the lateral superior right kidney is somewhat lobulated and heterogeneous in density measuring 2.7 cm in diameter. This probably represents a complex cyst. Recommend further evaluation with ultrasound. PROGNOSIS: Good. She has pending bladder wall biopsy path results ACTIVITY: As tolerated. DIET: Regular DISCHARGE PLAN: Home with mcknight, with close urology follow up DISPOSITION: Home DISCHARGE INSTRUCTIONS: 1. Please follow up with urology on 06/11/2019 2. Please complete the levaquin course. ITEMS TO FOLLOWUP ON ON OUTPATIENT: 1. hematuria, with indwelling mcknight catheter DISCHARGE CONDITION: Stable TIME SPENT ON DISCHARGE: 43 minutes. Vital Signs/I&Os Vital Signs Date Time Temp Pulse Resp B/P (MAP) Pulse Ox O2 Delivery O2 Flow Rate FiO2 06/08/19 06:00 98.9 83 18 118/66 (83) 91 Nasal Cannula 1.0 I&O- Last 24 Hours up to 6 AM 06/08/19 06:00 Intake Total 600 ml Output Total 1700 ml Balance -1100 ml Laboratory Data Labs 24H Laboratory Tests 2 06/08/19 06:41: Nucleated Red Blood Cells % (auto) 0.0, Anion Gap 4L, Glomerular Filtration Rate > 60.0, Calcium Level 8.0L CBC/BMP Laboratory Tests 06/08/19 06:41 Discharge Medications Scheduled Aspirin (Aspirin EC) 81 Mg Tablet.dr, 81 MG PO DAILY, (Reported) Budesonide (Budesonide) 0.5 Mg/2 Ml Ampul.neb, 0.5 MG INH BID, (Reported) STARTED AT [facility] Calcium Carbonate/Vitamin D3 (Calcium 500-Vit D3 400 Tablet) 1 Each Tablet, 1 TAB PO DAILY, (Reported) Hydrochlorothiazide (Hydrochlorothiazide) 25 Mg Tablet, 25 MG PO DAILY, (Reported) Ipratropium/Albuterol Sulfate (Iprat-Albut 0.5-3(2.5) mg/3 ml) 3 Ml Ampul.neb, 1 JC INH BID, (Reported) STARTED AT [facility] Levofloxacin in Dextrose 5 % (Levofloxacin 750 mg/150 ml-D5w) 750 Mg/150 Ml Anastacia yback, 750 MG IV ASDIRECTED, (Reported) EVERY 48 HOURS - STARTED AT [facility] Losartan Potassium (Losartan Potassium) 100 Mg Tablet, 100 MG PO DAILY, (Reported) Magnesium Oxide (Magnesium Oxide) 400 Mg Tablet, 400 MG PO DAILY, (Reported) Methimazole (Methimazole) 5 Mg Tablet, 5 MG PO DAILY, (Reported) Napoleon-3 Fatty Acids/Fish Oil (Fish Oil 1,000 mg Capsule) 1 Each Capsule, 1,000 MG PO DAILY, (Reported) Omeprazole (Omeprazole) 20 Mg Capsule.dr, 20 MG PO DAILY, (Reported) Potassium Chloride (Potassium Chloride) 10 Meq Capsule.er, 10 MEQ PO BID, (Reported) Pravastatin Sodium (Pravastatin Sodium) 40 Mg Tablet, 40 MG PO DAILY, (Reported) Scheduled PRN Ipratropium/Albuterol Sulfate (Combivent Respimat 20-100 Mcg) 4 Gm Mist.inhal, 1 PUFF INH QID PRN for SHORTNESS OF BREATH, (Reported) Ipratropium/Albuterol Sulfate (Iprat-Albut 0.5-3(2.5) mg/3 ml) 3 Ml Ampul.neb, 1 JC INH Q6H PRN for SHORTNESS OF BREATH, (Reported) STARTED AT [facility] Allergies Coded Allergies: atorvastatin (Verified Adverse Reaction, Mild, MUSCLE ACHES, 06/05/19) POPPY BUNDY MD June 08, 2019 08:43
[2019-06-09] MEDS ORDERED: LEVA750T7 PO (13:24)
[2019-06-09] MEDS ORDERED: POTA10CA32 PO (13:24)
--- NOTE | 2019-06-09 16:46 | IPNPDOC ---
Text Note Date of Service The patient was seen on 06/09/19. NOTE Subjective: -No complaints this AM -Hypoxemia resolved -Feels well, eager to get home Objective: GEN: well-nourished, NAD Skin: No lesions or rashes HEENT: NCAT, PERRLA, EOMI, anicteric, MMM CVS: RRR, no mrg LUNGS: CTAB, with diminished bases, breathing comfortably on room air ABDOMEN: Normoactive, soft, NTND : mcknight in place Ext: WWP, no LE edema NEURO: CN 2-12 are grossly intact, speech not dysarthric, 5/5 strength throughout PSYCH: alert and oriented to person place and time/ able to understand and follow all commands LABORATORY DATA: reviewed K 3 (repleted) ASSESSMENT: 83-year-old woman with history of COPD, HTN, hyperthyroidism and dyslipidemia who is admitted for evaluation of hematuria now s/p cystoscopy with course c/b new mild hypoxemia now on treatment for PNA likely CAP and s/p mild diuresis after having received blood and fluids this admission with resolution of hypoxemia. She was by PT today and cleared for discharge home with a rolling walker. However she had asymptomatic hypotension to SBP 80s and we decided to keep her for monitoring and PO hydration and after discussion with her sispqwxy-hj-cqg decided to keep her inpatient until Tuesday so that they can pick her up directly to the urology appointment and them home. PLAN: Hypoxemic respiratory failure: with evidence of PNA likely CAP and possible volume overload given the recent volume of blood and fluids: resolved -continue levaquin for CAP -Imaging in addition to likely PNA also noted an enlarged R thyroid lobe with calcifications, likely not new in my discussion with her daughter in law and patient being on methamazole. Has endocrine follow up in 06/2019 Hematuria with possible bladder mass -continue holding ASA, to be restarted in the outpatient setting per urology -s/p cystoscopy and biopsy -per Dr. Calixto to go home with roxanna and follow up in the outpatient setting 2. COPD - budesonide, ipratropium/albuterol / incentive spirometer 3. Chronic HTN - HTCZ, losartan, with hold parameters 4. Hyperthyroidism - methimazole 5. Dyslipidemia - pravastatin 6. Tobacco abuse - nicotine patch / smoking cessation education DVT PROPHYLAXIS: SCDs Diet: Regular DISPOSITION: medsurg, for planned home discharge on 06/11/2019 VS,Fishbone, I+O VS, Fishbone, I+O Laboratory Tests 06/09/19 06:14 Vital Signs Date Time Temp Pulse Resp B/P (MAP) Pulse Ox O2 Delivery O2 Flow Rate FiO2 06/09/19 14:38 84/46 (59) 06/09/19 14:25 89 06/09/19 14:00 98.2 15 89 06/09/19 11:00 Room Air 06/09/19 06:00 1.0 I&O- Last 24 Hours up to 6 AM 06/09/19 06:00 Intake Total 1280 ml Output Total 4250 ml Balance -2970 ml POPPY BUNDY MD June 09, 2019 16:46
[2019-06-09] MEDS ORDERED: NS 500 ML IV ONE (21:15)
[2019-06-10] VITALS (8 sets, daily range): BP systolic 68–124; BP diastolic 40–64; O2SAT 92
[2019-06-10] MEDS: LevoFLOXacin 750 MG TABLET PO SCH (05:23)
[2019-06-10 06:42] LABS: HEMATOCRIT 27.9 % (36.0-47.0); HEMOGLOBIN 8.3 g/dl (12.0-15.5); MEAN CORPUSCULAR HEMOGLOBIN 22.6 pg (27.0-33.0); MEAN CORPUSCULAR HGB CONC 29.7 g/dl (32.0-36.5); PLATELET COUNT, AUTOMATED 254 10^3/uL (150-450); RED BLOOD COUNT 3.67 10^6/uL (4.00-5.40); WHITE BLOOD COUNT 7.9 10^3/uL (4.0-10.0)
[2019-06-10 07:02] LABS: BLOOD UREA NITROGEN 11 MG/DL (7-18); CALCIUM LEVEL 7.7 MG/DL (8.8-10.2); CARBON DIOXIDE LEVEL 33 MEQ/L (21-32); CHLORIDE LEVEL 104 MEQ/L (98-107); CREATININE FOR GFR 0.88 MG/DL (0.55-1.30); GLOMERULAR FILTRATION RATE > 60.0 (>32); GLUCOSE, FASTING 80 MG/DL (70-100); POTASSIUM SERUM 4.1 MEQ/L (3.5-5.1); SODIUM LEVEL 142 MEQ/L (136-145)
[2019-06-10] MEDS: BUDESONIDE 0.5 MG/2 ML INHALATION SUSPENSION INH SCH ×2 (07:23→19:28)
[2019-06-10] MEDS ORDERED: NS 500 ML IV ONE (08:00)
[2019-06-10] MEDS: NICOTINE 14 MG/24 HR TRANSDERMAL TD SCH (08:20)
[2019-06-10] MEDS: POTASSIUM CHLORIDE 10 MEQ SR TABLET PO SCH ×2 (08:21→20:15)
[2019-06-10] MEDS: DOCUSATE SODIUM 100 MG CAP PO SCH ×2 (08:21→20:15)
[2019-06-10] MEDS: CALCIUM/VITAMIN D 500 MG TAB PO SCH (08:21)
[2019-06-10] MEDS: PRAVASTATIN 20 MG TAB PO SCH (08:21)
[2019-06-10] MEDS: OMEPRAZOLE 20 MG CAP PO SCH (08:21)
[2019-06-10] MEDS: hydroCHLOROthiazide 25 MG TAB PO SCH (08:24)
[2019-06-10] MEDS: LOSARTAN 50 MG TAB PO SCH (08:24)
--- NOTE | 2019-06-10 11:44 | IPNPDOC ---
Text Note Date of Service The patient was seen on 06/10/19. NOTE Subjective: -No complaints this AM -continues to have asymptomatic hypotensive episodes and is orthostatic, got 500cc bolus overnight, now getting another 500cc -was about ready to discharge her home yesterday when we noted asymptomatic hypotension and after speaking with her ylcnpsjc-[id number]-zwu appears to have been happening when she was checked in the office as well. Wondering if she should be off the HTN meds altogether, and in addition with had given her a dose of lasix the day prior. Objective: GEN: well-nourished, NAD Skin: No lesions or rashes HEENT: NCAT, PERRLA, EOMI, anicteric, MMM CVS: RRR, no mrg LUNGS: CTAB, with diminished bases, breathing comfortably on room air ABDOMEN: Normoactive, soft, NTND : mcknight in place Ext: WWP, no LE edema NEURO: CN 2-12 are grossly intact, speech not dysarthric, 5/5 strength throughout PSYCH: alert and oriented to person place and time/ able to understand and follow all commands LABORATORY DATA: reviewed K 4.1 WBC 7.9 hgb down to 8.3 Cr stable at 0.88 ASSESSMENT: 83-year-old woman with history of COPD, HTN, hyperthyroidism and dyslipidemia who is admitted for evaluation of hematuria now s/p cystoscopy with course c/b new mild hypoxemia now on treatment for PNA likely CAP and s/p mild diuresis after having received blood and fluids this admission with resolution of hypoxemia. She was by PT today and cleared for discharge home with a rolling walker. However she had asymptomatic hypotension to SBP 80s and we decided to keep her for monitoring and PO hydration and after discussion with her harcvtyz-yc-gom decided to keep her inpatient until Tuesday so that they can pick her up directly to the urology appointment and them home. PLAN: Hypoxemic respiratory failure: with evidence of PNA likely CAP and possible volume overload given the recent volume of blood and fluids: resolved -continue levaquin for CAP for 5d course -Imaging in addition to likely PNA also noted an enlarged R thyroid lobe with calcifications, likely not new in my discussion with her daughter in law and patient being on methamazole. Has endocrine follow up in 06/2019 Hematuria with possible bladder mass -continue holding ASA, to be restarted in the outpatient setting per urology -s/p cystoscopy and biopsy -per Dr. Calixto to go home with roxanna and follow up in the outpatient setting. Plan is for discharge directly to [facility] and then go home on Tuesday, if all else is optimized Asymptomatic hypotension: -appears to be a combination of recent diuresis in the setting of new hypoxemia that has now resolved, as well as per discussion with her mfkspeys-cg-ngw has been on antihypertensives that she may not require anymore because her BP has been running low even at home. Will hold the ARB and thiazide -This morning receiving 500cc of NS @ 100cc/hr 2. COPD - budesonide, ipratropium/albuterol / incentive spirometer 3. Chronic HTN - Discontinue HTCZ, losartan, given ongoing hypotension and orthostasis 4. Hyperthyroidism - methimazole 5. Dyslipidemia - pravastatin 6. Tobacco abuse - nicotine patch / smoking cessation education DVT PROPHYLAXIS: SCDs Diet: Regular DISPOSITION: medsurg, at this time tentatively planning for home discharge on 06/11/2019 Rosa ULLOA I+O VSRosa I+O Laboratory Tests 06/10/19 06:08 Vital Signs Date Time Temp Pulse Resp B/P (MAP) Pulse Ox O2 Delivery O2 Flow Rate FiO2 06/10/19 08:24 95/52 06/10/19 07:30 84 94 102 06/10/19 06:00 98.2 19 97 Room Air 06/09/19 21:00 2.0 I&O- Last 24 Hours up to 6 AM 06/10/19 06:00 Intake Total 810 ml Output Total 0 ml Balance 810 ml POPPY BUNDY MD June 10, 2019 09:19
[2019-06-11] VITALS (9 sets, daily range): BP systolic 108–121; BP diastolic 59–67; O2SAT 90–93
[2019-06-11] MEDS: LevoFLOXacin 750 MG TABLET PO SCH (05:20)
[2019-06-11 06:37] LABS: HEMATOCRIT 27.9 % (36.0-47.0); HEMOGLOBIN 8.5 g/dl (12.0-15.5); MEAN CORPUSCULAR HGB CONC 30.5 g/dl (32.0-36.5); MEAN CORPUSCULAR VOLUME 75.6 fl (80.0-96.0); PLATELET COUNT, AUTOMATED 253 10^3/uL (150-450); RED BLOOD COUNT 3.69 10^6/uL (4.00-5.40); WHITE BLOOD COUNT 6.4 10^3/uL (4.0-10.0)
[2019-06-11 06:54] LABS: BLOOD UREA NITROGEN 10 MG/DL (7-18); CALCIUM LEVEL 7.9 MG/DL (8.8-10.2); CARBON DIOXIDE LEVEL 30 MEQ/L (21-32); CHLORIDE LEVEL 106 MEQ/L (98-107); GLOMERULAR FILTRATION RATE > 60.0 (>32); GLUCOSE, FASTING 81 MG/DL (70-100); POTASSIUM SERUM 3.6 MEQ/L (3.5-5.1); SODIUM LEVEL 141 MEQ/L (136-145)
[2019-06-11] MEDS: BUDESONIDE 0.5 MG/2 ML INHALATION SUSPENSION INH SCH (07:10)
--- NOTE | 2019-06-11 08:41 | IPNPDOC ---
Subjective Review oF Systems Chief Complaint The patient is a 83-year-old female admitted with a reason for visit of Hematuria. Events since Last Encounter No acute events. Denies pain. Objective Physical Examination General Exam: Alert, Cooperative, No Acute Distress ENT EXAM: Atraumatic ABDOMEN EXAM: Soft; No: Tenderness Skin Exam: Nl turgor and temperature Neuro Exam: Normal Speech Psych Exam: Mental status NL, Mood NL Other physical findings catheter draining clear yellow urine Vital Signs/I&O Vital Signs Date Time Temp Pulse Resp B/P (MAP) Pulse Ox O2 Delivery O2 Flow Rate FiO2 06/11/19 06:00 99.2 85 18 116/60 (78) 94 Nasal Cannula 1.5 I&O- Last 24 Hours up to 6 AM 06/11/19 06:00 Intake Total 1340 ml Output Total 2500 ml Balance -1160 ml Laboratory Data Labs 24H Laboratory Tests 2 06/11/19 06:14: Nucleated Red Blood Cells % (auto) 0.0, Anion Gap 5L, Glomerular Filtration Rate > 60.0, Calcium Level 7.9L CBC/BMP Laboratory Tests 06/11/19 06:14 Assessment/Plan Date Seen The patient was seen on 06/11/19. Patient Summary This is an 83 y/o F admitted w/ gross hematuria, s/p cysto w/ bladder biopsies on 06/06/19. Her pathology was negative for cancer. This was discussed w/ the patient and will be discussed w/ her family member Nasima per patient's request. Her catheter can be removed today. Her CT chest was notable for a complex R renal cyst. I recommend a CT urogram to better evaluate this and for her recent hematuria. Plan/VTE VTE Prophylaxis Ordered?: Yes VTE Exclusion Mechanical Proph: N/A:VTE Prophy Ordered Plan/Urinary Catheter Urinary Catheter: D/C Johnson Plan - pathology results discussed - d/c Johnson - CT urogram ordered - will discuss results w/ patient's family member Nasima, per patient request KRYSTIN FORRESTER MD June 11, 2019 08:41
[2019-06-11] MEDS ORDERED: ISOVUE-370 76% 100ML VIAL As Ordered ONE (09:04)
[2019-06-11] MEDS ORDERED: IPRATROPIUM 0.5MG/ALBUTEROL 2.5MG INH SOL UD 3ML (DUONEB)(J7620) INH PRN (09:15)
[2019-06-11] MEDS: CALCIUM/VITAMIN D 500 MG TAB PO SCH (09:43)
[2019-06-11] MEDS: OMEPRAZOLE 20 MG CAP PO SCH (09:44)
[2019-06-11] MEDS: FERROUS GLUCONATE 324 MG TAB PO SCH ×2 (09:44→21:16)
[2019-06-11] MEDS: DOCUSATE SODIUM 100 MG CAP PO SCH ×2 (09:44→21:16)
[2019-06-11] MEDS: PRAVASTATIN 20 MG TAB PO SCH (09:44)
[2019-06-11] MEDS: NICOTINE 14 MG/24 HR TRANSDERMAL TD SCH (09:44)
[2019-06-11] MEDS: POTASSIUM CHLORIDE 10 MEQ SR TABLET PO SCH ×2 (09:44→21:16)
[2019-06-11] MEDS ORDERED: IRON SUCROSE 500 MG in NS 250 ML IV ONE (11:00)
--- NOTE | 2019-06-11 11:56 | REP ---
CT ABDOMEN AND PELVIS WITH AND WITHOUT IV CONTRAST: (CT urogram) CT abdomen and pelvis performed prior to and following the intravenous administration of 100 mL of Isovue 370. Sagittal and coronal reconstruction images are performed. 3D MIP reconstruction images are performed. In the visualized lung bases, there is consolidated infiltrate or atelectasis inferiorly and posteriorly in the right lower lobe. There are underlying chronic fibrotic changes. The liver demonstrates no mass. The patient has had a prior cholecystectomy with expected prominence of the common bile duct. Spleen is unremarkable and normal in size. The adrenal glands are thickened bilaterally. No pancreatic mass is seen. In the upper lateral right kidney, there is an exophytic cystic structure. This measures abut 3.3 x 1.8 cm. It measures slightly greater than water density on the precontrast images. There is very mild enhancement internally. with a post contrast increase in Hounsfield units of approximately 10. There are two adjacent nonenhancing cysts more posteriorly in the right kidney. There is a nonenhancing simple cyst in the lower pole of the left kidney which measures 1.9 cm. There are bilateral renal vascular calcifications with no definite renal stone. There is no hydroureteronephrosis. Urinary bladder is collapsed and is not evaluated. It contains a Johnson catheter. There is atherosclerotic calcification of the abdominal aorta without aneurysm. There is no adenopathy. There is no free air or free fluid. There is no bowel wall thickening. There is sigmoid and left colonic diverticulosis without acute diverticulitis. There is a small ventral hernia to the left of midline at the level of the pelvis containing noninflamed fat. An enlarged uterus is noted with several calcified fibroids, the largest measures 7.2 cm in diameter. No other pelvic mass is seen. There are degenerative changes of the spine. IMPRESSION: Complex cyst upper pole right kidney demonstrates mild enhancement of approximately 10 Hounsfield unit reading. The level of enhancement is indeterminate. There is no obvious soft tissue nodular component and there are no internal calcifications, which would be suspicious. Recommend correlation with ultrasound. There are other bilateral simple cysts of the kidneys. Right lower lobe infiltrate/atelectasis. No other acute abnormalities. Electronically Signed by Prasanth Bauer MD 06/11/2019 12:01 P
[2019-06-11] MEDS ORDERED: FUROSEMIDE 40MG/4ML VIAL (J1940) IV ONE (13:00)
--- NOTE | 2019-06-11 13:22 | IPNPDOC ---
Text Note Date of Service The patient was seen on 06/11/19. NOTE Subjective: No complaints this AM however noted to be hypoxic to 80 to 82% in room air at rest. BP ok today. Discharge held today due to hyoxia. Denies any SOB or cough but having pursed lip breathing. Objective: Vitals as below GEN: well-nourished, NAD, laying down in bed comfortably however noted to have pursed lip breathing. Skin: No lesions or rashes HEENT: NCAT, PERRLA, EOMI, anicteric, MMM CVS: RRR, no murmur or gallop. LUNGS: Bilateral ronchi and diminished breath sounds. ABDOMEN: Normoactive, soft, NTND, no sacral edema. Ext: WWP, no LE edema NEURO: CN 2-12 are grossly intact, speech not dysarthric, 5/5 strength throughout PSYCH: alert and oriented to person place and time/ able to understand and follow all commands Labs and radiology: Reviewed. ASSESSMENT and PLAN: 83-year-old woman with history of COPD, HTN, hyperthyroidism and dyslipidemia who is admitted for evaluation of hematuria now s/p cystoscopy with course c/b new mild hypoxemia now on treatment for PNA likely CAP , COPD exacerbation and s/p mild diuresis after having received blood and fluids this admission. She has been evaluated by PT and cleared for discharge home with a rolling walker. However she had hypoxia again this am to low 80s and we decided to keep her for monitoring and evaluateion of hypoxia and to determined if she needed home oxygen or not. Hypoxemic respiratory failure: Due to COPD exacerbation and PNA and possible volume overload No Pulmonary embolism Pneumonia Continue levaquin for CAP COPD exacerbation symbicort, combivent, methyl pred and lasix. oxygen supplementation Severe iron deficiency anemia recent hematuria may be worsening it. will give venofer. Enlarged Thyroid lobe CT angio of chest noted enlarged R thyroid lobe with calcifications, likely not new as per daughter in law and patient being on methamazole. Has endocrine follow up in 06/[address] abd pelvis with contrast: complex renal cyst. continue holding ASA, to be restarted in the outpatient setting per urology s/p cystoscopy and biopsy Asymptomatic hypotension: due to antihypertensives which have now been discontinued. Chronic HTN seems to have resolved after loss of significant amount of weight in the past year. Discontinue HTCZ, losartan, given ongoing hypotension and orthostasis Hyperthyroidism - methimazole Dyslipidemia - pravastatin Tobacco abuse - nicotine patch / smoking cessation education DVT PROPHYLAXIS: SCDs Diet: Regular DISPOSITION: Home in 24 to 48 hours. VS,Fishbone, I+O VS, Fishbone, I+O Laboratory Tests 06/11/19 06:14 Vital Signs Date Time Temp Pulse Resp B/P (MAP) Pulse Ox O2 Delivery O2 Flow Rate FiO2 06/11/19 10:00 97.4 87 16 121/63 (82) 86 Nasal Cannula 3.0 I&O- Last 24 Hours up to 6 AM 06/11/19 06:00 Intake Total 1340 ml Output Total 2500 ml Balance -1160 ml RYAN LANDRY MD June 11, 2019 13:22
[2019-06-11] MEDS: IPRATROPIUM 0.5MG/ALBUTEROL 2.5MG INH SOL UD 3ML (DUONEB)(J7620) INH SCH ×3 (14:12→19:55)
[2019-06-11] MEDS: methylPREDNISolone INJ 40 MG/1 ML VIAL (J2920) IV SCH ×2 (15:58→21:16)
[2019-06-11] MEDS: SYMBICORT 80/4.5MCG INHALER 6GM INH SCH (19:55)
[2019-06-12] VITALS (7 sets, daily range): BP systolic 105–119; BP diastolic 51–72; O2SAT 95
[2019-06-12] MEDS: methylPREDNISolone INJ 40 MG/1 ML VIAL (J2920) IV SCH ×3 (05:28→22:09)
[2019-06-12] MEDS: LevoFLOXacin 750 MG TABLET PO SCH (05:28)
[2019-06-12 06:02] LABS: HEMATOCRIT 29.3 % (36.0-47.0); HEMOGLOBIN 9.1 g/dl (12.0-15.5); MEAN CORPUSCULAR HEMOGLOBIN 23.6 pg (27.0-33.0); MEAN CORPUSCULAR HGB CONC 31.1 g/dl (32.0-36.5); MEAN CORPUSCULAR VOLUME 75.9 fl (80.0-96.0); PLATELET COUNT, AUTOMATED 269 10^3/uL (150-450); RED BLOOD COUNT 3.86 10^6/uL (4.00-5.40); WHITE BLOOD COUNT 7.4 10^3/uL (4.0-10.0)
[2019-06-12 06:27] LABS: BLOOD UREA NITROGEN 12 MG/DL (7-18); CARBON DIOXIDE LEVEL 31 MEQ/L (21-32); CHLORIDE LEVEL 102 MEQ/L (98-107); CREATININE FOR GFR 0.95 MG/DL (0.55-1.30); GLOMERULAR FILTRATION RATE > 60.0 (>32); GLUCOSE, FASTING 124 MG/DL (70-100); POTASSIUM SERUM 3.6 MEQ/L (3.5-5.1); SODIUM LEVEL 138 MEQ/L (136-145)
[2019-06-12] MEDS: SYMBICORT 80/4.5MCG INHALER 6GM INH SCH ×2 (07:23→19:34)
[2019-06-12] MEDS: IPRATROPIUM 0.5MG/ALBUTEROL 2.5MG INH SOL UD 3ML (DUONEB)(J7620) INH SCH ×4 (07:23→19:34)
[2019-06-12] MEDS: CALCIUM/VITAMIN D 500 MG TAB PO SCH (09:01)
[2019-06-12] MEDS: POTASSIUM CHLORIDE 10 MEQ SR TABLET PO SCH ×2 (09:01→22:09)
[2019-06-12] MEDS: OMEPRAZOLE 20 MG CAP PO SCH (09:01)
[2019-06-12] MEDS: DOCUSATE SODIUM 100 MG CAP PO SCH ×2 (09:01→22:09)
[2019-06-12] MEDS: FERROUS GLUCONATE 324 MG TAB PO SCH ×2 (09:01→22:09)
[2019-06-12] MEDS: PRAVASTATIN 20 MG TAB PO SCH (09:01)
[2019-06-12] MEDS: NICOTINE 14 MG/24 HR TRANSDERMAL TD SCH (09:03)
[2019-06-12] MEDS ORDERED: FUROSEMIDE 40MG/4ML VIAL (J1940) IV ONE (10:45)
--- NOTE | 2019-06-12 10:54 | IPNPDOC ---
Text Note Date of Service The patient was seen on 06/12/19. NOTE Subjective: Denies any SOB. has some cough dry. Requiring less oxygen today. No hematuria. Objective: Vitals as below GEN: sitting by the side of the bed without any distress however noted to still have pursed lip breathing intermittently. Skin: No lesions or rashes HEENT: NCAT, PERRLA, EOMI, anicteric, MMM CVS: RRR, no murmur or gallop. LUNGS: Bilateral clear to ausculation, diminished breath sounds. ABDOMEN: Normoactive, soft, NTND, no sacral edema. Ext: trace bipedal edema NEURO: CN 2-12 are grossly intact, speech not dysarthric, 5/5 strength throughout PSYCH: alert and oriented to person place and time/ able to understand and follow all commands Labs and radiology: Reviewed. ASSESSMENT and PLAN: 83-year-old woman with history of COPD, HTN, hyperthyroidism and dyslipidemia who is admitted for evaluation of hematuria now s/p cystoscopy with course c/b n ew mild hypoxemia now on treatment for PNA likely CAP , COPD exacerbation and s/p mild diuresis after having received blood and fluids this admission. She has been evaluated by PT and cleared for discharge home with a rolling walker. However she had hypoxia again this am to low 80s and we decided to keep her for monitoring and evaluateion of hypoxia and to determined if she needed home oxygen or not. Hypoxemic respiratory failure: Due to COPD exacerbation and PNA and possible volume overload No Pulmonary embolism will give lasix. will try to wean off oxygen Pneumonia Continue levaquin for CAP COPD exacerbation symbicort, combivent, methyl pred and lasix. wean oxygen as tolerated. Severe iron deficiency anemia recent hematuria may be worsening it. given venofer. Enlarged Thyroid lobe CT angio of chest noted enlarged R thyroid lobe with calcifications, likely not new as per daughter in law and patient being on methamazole. Has endocrine follow up in 06/[address] abd pelvis with contrast: right exophytic complex renal cyst which enhances on contrast to 10 HU. there are other nonenhancing cysts bilaterally. continue holding ASA, to be restarted in the outpatient setting per urology s/p cystoscopy and biopsy Asymptomatic hypotension: due to antihypertensives which have now been discontinued. Chronic HTN seems to have resolved after loss of significant amount of weight in the past year. Discontinue HTCZ, losartan, given ongoing hypotension and orthostasis Hyperthyroidism - methimazole Dyslipidemia - pravastatin Tobacco abuse - nicotine patch / smoking cessation education DVT PROPHYLAXIS: SCDs Diet: Regular DISPOSITION: Home in 24 to 48 hours. VS,Fishbone, I+O VS, Fishbone, I+O Laboratory Tests 06/12/19 05:47 Vital Signs Date Time Temp Pulse Resp B/P (MAP) Pulse Ox O2 Delivery O2 Flow Rate FiO2 06/12/19 10:00 98.4 88 17 112/66 (81) 91 Nasal Cannula 1.5 I&O- Last 24 Hours up to 6 AM 06/12/19 06:00 Intake Total 2095 ml Output Total 3470 ml Balance -1375 ml RYAN LANDRY MD June 12, 2019 10:54
[2019-06-13] VITALS (11 sets, daily range): BP systolic 88–118; BP diastolic 48–64; O2SAT 83–91
[2019-06-13] MEDS: LevoFLOXacin 750 MG TABLET PO SCH (05:19)
[2019-06-13] MEDS: methylPREDNISolone INJ 40 MG/1 ML VIAL (J2920) IV SCH (05:19)
[2019-06-13] MEDS: SYMBICORT 80/4.5MCG INHALER 6GM INH SCH ×2 (07:23→19:10)
[2019-06-13] MEDS: IPRATROPIUM 0.5MG/ALBUTEROL 2.5MG INH SOL UD 3ML (DUONEB)(J7620) INH SCH ×4 (07:23→19:10)
[2019-06-13] MEDS: POTASSIUM CHLORIDE 10 MEQ SR TABLET PO SCH ×2 (09:48→21:02)
[2019-06-13] MEDS: OMEPRAZOLE 20 MG CAP PO SCH ×2 (09:48→21:02)
[2019-06-13] MEDS: NICOTINE 14 MG/24 HR TRANSDERMAL TD SCH (09:48)
[2019-06-13] MEDS: DOCUSATE SODIUM 100 MG CAP PO SCH ×2 (09:49→21:01)
[2019-06-13] MEDS: CALCIUM/VITAMIN D 500 MG TAB PO SCH (09:49)
[2019-06-13] MEDS: FERROUS GLUCONATE 324 MG TAB PO SCH ×2 (09:49→21:02)
[2019-06-13] MEDS: PRAVASTATIN 20 MG TAB PO SCH (09:49)
--- NOTE | 2019-06-13 10:43 | IPNPDOC ---
Text Note Date of Service The patient was seen on 06/13/19. NOTE Subjective: Denies any SOB. has some cough dry. No hematuria. Good urine output. Oxygen requirement is going down. Will probably be able to wean her off today. Objective: Vitals as below GEN: sitting by the side of the bed without any distress however noted to still have pursed lip breathing intermittently. Skin: No lesions or rashes HEENT: NCAT, PERRLA, EOMI, anicteric, MMM CVS: RRR, no murmur or gallop. LUNGS: Bilateral scattered ronchi, diminished breath sounds. ABDOMEN: Normoactive, soft, NTND, no sacral edema. Ext: trace bipedal edema NEURO: CN 2-12 are grossly intact, speech not dysarthric, 5/5 strength throughout PSYCH: alert and oriented to person place and time/ able to understand and follow all commands Labs and radiology: Reviewed. ASSESSMENT and PLAN: 83-year-old woman with history of COPD, HTN, hyperthyroidism and dyslipidemia who is admitted for evaluation of hematuria now s/p cystoscopy with course c/b new mild hypoxemia now on treatment for PNA likely CAP , COPD exacerbation and s/p mild diuresis after having received blood and fluids this admission. She has been evaluated by PT and cleared for discharge home with a rolling walker. However she had hypoxia again this am to low 80s and we decided to keep her for monitoring and evaluateion of hypoxia and to determined if she needed home oxygen or not. Hypoxemic respiratory failure: Due to COPD exacerbation and PNA and possible volume overload No Pulmonary embolism will give lasix. will try to wean off oxygen Pneumonia Continue levaquin for CAP COPD exacerbation symbicort, combivent, pred and lasix. wean oxygen as tolerated. Severe iron deficiency anemia recent hematuria may be worsening it. given venofer. Enlarged Thyroid lobe CT angio of chest noted enlarged R thyroid lobe with calcifications, likely not new as per daughter in law and patient being on methamazole. Has endocrine follow up in 06/[address] abd pelvis with contrast: right exophytic complex renal cyst which enhances on contrast to 10 HU. there are other nonenhancing cysts bilaterally. continue holding ASA, to be restarted in the outpatient setting per urology s/p cystoscopy and biopsy Asymptomatic hypotension: due to antihypertensives which have now been discontinued. Chronic HTN seems to have resolved after loss of significant amount of weight in the past year. Discontinue HTCZ, losartan, given ongoing hypotension and orthostasis Hyperthyroidism - methimazole Dyslipidemia - pravastatin Tobacco abuse - nicotine patch / smoking cessation education DVT PROPHYLAXIS: SCDs Diet: Regular DISPOSITION: Home in 24 to 48 hours. VS,Fishbone, I+O VS, Fishbone, I+O Vital Signs Date Time Temp Pulse Resp B/P (MAP) Pulse Ox O2 Delivery O2 Flow Rate FiO2 06/13/19 10:00 98.6 83 19 111/64 (80) 96 Nasal Cannula 1.0 I&O- Last 24 Hours up to 6 AM 06/13/19 06:00 Intake Total 440 ml Output Total 1210 ml Balance -770 ml RYAN LANDRY MD June 13, 2019 10:43
[2019-06-13] MEDS ORDERED: FUROSEMIDE 40MG/4ML VIAL (J1940) IV ONE (11:00)
[2019-06-14] VITALS (8 sets, daily range): BP systolic 92–108; BP diastolic 54–64; O2SAT 85–90
[2019-06-14] MEDS: LevoFLOXacin 750 MG TABLET PO SCH (05:19)
[2019-06-14] MEDS: SYMBICORT 80/4.5MCG INHALER 6GM INH SCH (07:17)
[2019-06-14] MEDS: IPRATROPIUM 0.5MG/ALBUTEROL 2.5MG INH SOL UD 3ML (DUONEB)(J7620) INH SCH ×2 (07:18→11:11)
[2019-06-14] MEDS ORDERED: predniSONE 20 MG TAB PO SCH (09:00)
[2019-06-14] MEDS: DOCUSATE SODIUM 100 MG CAP PO SCH (09:16)
[2019-06-14] MEDS: FERROUS GLUCONATE 324 MG TAB PO SCH (09:16)
[2019-06-14] MEDS: NICOTINE 14 MG/24 HR TRANSDERMAL TD SCH (09:16)
[2019-06-14] MEDS: CALCIUM/VITAMIN D 500 MG TAB PO SCH (09:16)
[2019-06-14] MEDS: PRAVASTATIN 20 MG TAB PO SCH (09:16)
[2019-06-14] MEDS: POTASSIUM CHLORIDE 10 MEQ SR TABLET PO SCH (09:17)
[2019-06-14] MEDS: OMEPRAZOLE 20 MG CAP PO SCH (09:17)
[2019-06-14] MEDS ORDERED: COMBAER6 INH (09:48)
[2019-06-14] MEDS ORDERED: VENTAER INH (09:48)
[2019-06-14] MEDS ORDERED: FLUT22IN INH (09:48)
[2019-06-14] MEDS ORDERED: PRED10TA2 PO (09:48)
[2019-06-14] MEDS ORDERED: FERR32TA PO (09:48)
[2019-06-14] MEDS ORDERED: MOM 30ML SUSPENSION UDC PO ONE ×2 (11:30)
--- NOTE | 2019-06-16 16:56 | DS.PDOC ---
Discharge Summary General Date of Admission Jun 05, 2019 at 21:34 Date of Discharge 06/14/19 Discharge Summary PROCEDURES PERFORMED DURING STAY: Cystoscopy with bladder biopsies. DISCHARGE DIAGNOSES: Hematuria s/p cysto and bladder biopsies negative for malignancy. Right renal complex cyst Acute hypoxic respiratory failure Pneumonia COPD exacerbation Iron deficiency anemia h/o hypertension now normal Hyperthyroidism Dyslipidemia tobacco use. COMPLICATIONS/CHIEF COMPLAINT: Hematuria. HISTORY OF PRESENT ILLNESS: See History and physical HOSPITAL COURSE: 83-year-old woman with history of COPD, HTN, hyperthyroidism and dyslipidemia who is admitted for evaluation of hematuria now s/p cystoscopy with course c/b new mild hypoxemia now on treatment for PNA likely CAP , COPD exacerbation and s/p mild diuresis after having received blood and fluids this admission. She has been evaluated by PT and cleared for discharge home with a rolling walker. However she had hypoxia again this am to low 80s and we decided to keep her for monitoring and evaluation of hypoxia and to determined if she needed home oxygen or not. Hypoxemic respiratory failure: Due to COPD exacerbation and PNA and possible volume overload No Pulmonary embolism now resolved. Usual oxygen is 88% to 90% in room air. Pneumonia finished levaquin COPD exacerbation resolved pred taper, flovent bid and combivent tid, albuterol prn Severe iron deficiency anemia recent hematuria may be worsening it. given venofer. continue iron Enlarged Thyroid lobe CT angio of chest noted enlarged R thyroid lobe with calcifications, likely not new as per daughter in law and patient being on methamazole. Has endocrine follow up in 06/2019 Hematuria --complex right upper pole cyst. CT abd pelvis with contrast: right exophytic complex renal cyst which enhances on contrast to 10 HU. there are other nonenhancing cysts bilaterally. continue holding ASA, to be restarted in the outpatient setting by PMD. s/p cystoscopy and biopsy CT urogram reviewed - The patient has a complex cyst in the upper pole of her right kidney that will need to be followed. Dr Calixto with arrange follow for the patient to have a renal US in 6 months to follow this. Urology office will schedule follow up to discuss the results. Asymptomatic hypotension: due to antihypertensives which have now been discontinued. Chronic HTN seems to have resolved after loss of significant amount of weight in the past year. Discontinue HTCZ, losartan, given ongoing hypotension and orthostasis Hyperthyroidism - methimazole Dyslipidemia - pravastatin Tobacco abuse - nicotine patch / smoking cessation education DISCHARGE MEDICATIONS: Please see below. ALLERGIES: Please see below. PHYSICAL EXAMINATION ON DISCHARGE: VITAL SIGNS: Please see below. GEN: sitting by the side of the bed without any distress however noted to still have pursed lip breathing intermittently. Skin: No lesions or rashes HEENT: NCAT, ADIEL, EOMI, anicteric, MMM CVS: RRR, no murmur or gallop. LUNGS: Bilateral scattered ronchi, diminished breath sounds. ABDOMEN: Normoactive, soft, NTND, no sacral edema. Ext: trace bipedal edema NEURO: CN 2-12 are grossly intact, speech not dysarthric, 5/5 strength throughout PSYCH: alert and oriented to person place and time/ able to understand and follow all commands LABORATORY DATA: Please see below. ACTIVITY: [As tolerated]. DIET: As tolerated. DISPOSITION: 01 Home, Self-Care. DISCHARGE INSTRUCTIONS: PMD in [address] Calixto as directed by urology DISCHARGE CONDITION: [Stable]. TIME SPENT ON DISCHARGE: 35 minutes. Vital Signs/I&Os Vital Signs Date Time Temp Pulse Resp B/P (MAP) Pulse Ox O2 Delivery O2 Flow Rate FiO2 06/14/19 10:00 98.3 80 18 100/56 (71) 87 Room Air 06/14/19 06:37 0.5 I&O- Last 24 Hours up to 6 AM 06/14/19 06:00 Intake Total 1700 ml Output Total 2825 ml Balance -1125 ml Laboratory Data CBC/BMP Item Value Date Time White Blood Count 7.4 10^3/uL 06/12/19 0547 Red Blood Count 3.86 10^6/uL L 06/12/19 0547 Hemoglobin 9.1 g/dl L 06/12/19 0547 Hematocrit 29.3 % L 06/12/19 0547 Mean Corpuscular Volume 75.9 fl L 06/12/19 0547 Mean Corpuscular Hemoglobin 23.6 pg L 06/12/19 0547 Mean Corpuscular Hemoglobin Concent 31.1 g/dl L 06/12/19 0547 Red Cell Distribution Width 26.8 % H 06/12/19 0547 Platelet Count 269 10^3/uL 06/12/19 0547 Nucleated Red Blood Cells % (auto) 0.0 % 06/12/19 0547 Sodium Level 138 MEQ/L 06/12/19 0547 Potassium Level 3.6 MEQ/L 06/12/19 0547 Chloride Level 102 MEQ/L 06/12/19 0547 Carbon Dioxide Level 31 MEQ/L 06/12/19 0547 Anion Gap 5 MEQ/L L 06/12/19 0547 Blood Urea Nitrogen 12 MG/DL 06/12/19 0547 Creatinine 0.95 MG/DL 06/12/19 0547 Glomerular Filtration Rate > 60.0 06/12/19 0547 Fasting Glucose 124 MG/DL H 06/12/19 0547 Calcium Level 8.0 MG/DL L 06/12/19 0547 Discharge Medications Scheduled Calcium Carbonate/Vitamin D3 (Calcium 500-Vit D3 400 Tablet) 1 Each Tablet, 1 TAB PO DAILY, (Reported) Ferrous Gluconate (Ferrous Gluconate) 324 Mg Tablet, 324 MG PO BID Fluticasone Propionate (Flovent Hfa) 220 Mcg/Act Aer.w.adap, 2 PUFF INH BID Ipratropium/Albuterol Sulfate (Combivent Respimat 20-100 Mcg) 4 Gm Mist.inhal, 1 PUFF INH TID Magnesium Oxide (Magnesium Oxide) 400 Mg Tablet, 400 MG PO DAILY, (Reported) Methimazole (Methimazole) 5 Mg Tablet, 5 MG PO DAILY, (Reported) [place]-3 Fatty Acids/Fish Oil (Fish Oil 1,000 mg Capsule) 1 Each Capsule, 1,000 MG PO DAILY, (Reported) Omeprazole (Omeprazole) 20 Mg Capsule.dr, 20 MG PO DAILY, (Reported) Pravastatin Sodium (Pravastatin Sodium) 40 Mg Tablet, 40 MG PO DAILY, (Reported) Prednisone (Prednisone) 10 Mg Tablet, 10 MG PO TAPER 3 tabs daily x 3 days, then 2 tabs daily x 3 days, then 1 tab daily x 3 days and stop Scheduled PRN Albuterol Sulfate (Ventolin Hfa) 18 Gm Hfa.aer.ad, 2 PUFF INH Q4-6HP PRN for wheezing Allergies Coded Allergies: atorvastatin (Verified Adverse Reaction, Mild, MUSCLE ACHES, 06/05/19) RYAN LANDRY MD June 14, 2019 18:07
== END 2019-06-14 13:21 | disposition home or self-care (01) | DRG 668 ==
LOC: M MSPAV 21:34
PROVIDERS: ADMIT General Practice; ATTEND Internal Medicine Nephrology
PROC: 0TBB8ZX Excision of Bladder, Via Natural or Artificial Opening Endoscopic, Diagnostic (ICD-10-PCS; principal; 2019-06-06 15:15)
DX: R31.0 Gross hematuria (principal); J18.9 Pneumonia, unspecified organism; J96.01 Acute respiratory failure with hypoxia; J44.0 Chronic obstructive pulmonary disease with (acute) lower respiratory infection; J44.1 Chronic obstructive pulmonary disease with (acute) exacerbation; N17.9 Acute kidney failure, unspecified; N32.89 Other specified disorders of bladder; D50.9 Iron deficiency anemia, unspecified; I10 Essential (primary) hypertension; E78.5 Hyperlipidemia, unspecified; E05.90 Thyrotoxicosis, unspecified without thyrotoxic crisis or storm; N28.1 Cyst of kidney, acquired; Z98.49 Cataract extraction status, unspecified eye; F17.200 Nicotine dependence, unspecified, uncomplicated; Z79.82 Long term (current) use of aspirin; Z79.899 Other long term (current) drug therapy; Z88.8 Allergy status to other drugs, medicaments and biological substances; I95.9 Hypotension, unspecified

== ENCOUNTER 2021-03-01 16:10 | Inpatient (IN) | payer MEDICARE, MEDICAID ==
[~2021-03-01] VITALS: Ht 142.2 cm; Wt 71.9 kg
[~2021-03-01 16:10] MED LIST: ASPI81TA26 PO; BUDE0.5S6 INH; CALC500T25 PO; COMBAER6 INH; FERR32TA PO; FISH1000 PO; FLUT22IN INH; HYDR-3490 PO; IPRA0.00 INH; LEVA750T7 PO; LEVO1INJ27 IV; LOSA100T45 PO; MAGN400T2 PO; METH25TAB PO; OMEP-173 PO; POTA10CA32 PO; PRAV40TA2 PO; PRED10TA2 PO; VENTAER INH
[2021-03-01 19:45] VITALS: BP 109/56
[2021-03-01 20:00] VITALS: BP 126/57
[2021-03-01 21:30] VITALS: BP 80/50
[2021-03-01] MEDS ORDERED: NS 1,000 ML IV SCH (21:55)
[2021-03-01] MEDS ORDERED: IPRATROPIUM 0.5MG/ALBUTEROL 2.5MG INH SOL UD 3ML (DUONEB) NEB ONE (22:00)
[2021-03-01] MEDS ORDERED: methylPREDNISolone 125MG 2ML VIAL IV ONE (22:00)
[2021-03-01] MEDS ORDERED: ALBUTEROL SULFATE 2.5 MG/0.5 ML INH NEB SOLN NEB PRN (22:20)
[2021-03-01] MEDS ORDERED: GLUCOSE 4GM CHEW TABLET PO PRN (22:20)
[2021-03-01] MEDS ORDERED: GLUCAGON INJ 1MG VIAL SC PRN (22:20)
[2021-03-01] MEDS ORDERED: DEXTROSE 50% 50 ML SYRINGE IV PRN (22:20)
[2021-03-01 22:41] LABS: ABG BASE EXCESS -7.2 (-2.0-2.0); ABG HCO3 19.4 MEQ/L (22.0-26.0); ABG PARTIAL PRESSURE CO2 43.1 mmHg (35.0-45.0); ABG PARTIAL PRESSURE O2 140.4 mmHg (75.0-100.0); ABG STANDARD HCO3 18.8 MEQ/L (22.0-26.0); ABG TOTAL CO2 20.8 MEQ/L (23.0-31.0); ABG pH (ARTERIAL) 7.272 UNITS (7.350-7.450)
[2021-03-01] MEDS ORDERED: FLUT44IN INH (23:08)
[2021-03-01] MEDS ORDERED: ESSE250T PO (23:08)
[2021-03-01] MEDS ORDERED: POTA10CA32 PO (23:10)
[2021-03-01] MEDS ORDERED: FURO20TA2 PO (23:10)
[2021-03-01] MEDS ORDERED: IPRA0.00 NEB (23:10)
[2021-03-01] MEDS ORDERED: MED REC COMMENT (23:11)
[2021-03-01 23:14] LABS: CALCIUM LEVEL 8.4 MG/DL (8.8-10.2); CREATININE FOR GFR 3.79 MG/DL (0.55-1.30); GLOMERULAR FILTRATION RATE 12.1 (>32); POTASSIUM SERUM 4.8 MEQ/L (3.5-5.1)
[2021-03-01] MEDS ORDERED: HOME MED LIST COMPLETE! XX SCH (23:15)
[2021-03-02] VITALS (7 sets, daily range): BP systolic 93–118; BP diastolic 50–83
[2021-03-02] MEDS ORDERED: ASPIRIN 300 MG SUPP PR STA (00:33)
[2021-03-02] MEDS: HumaLOG INSULIN (NovoLOG) PER UNIT SC SCH ×4 (00:41→18:00)
[2021-03-02] MEDS ORDERED: NS 500 ML IV ONE (02:10)
[2021-03-02] MEDS ORDERED: BISACODYL 10 MG SUPP PR PRN (02:40)
[2021-03-02] MEDS ORDERED: FLEET ENEMA PR PRN (02:40)
[2021-03-02] MEDS: AZITHROMYCIN INJ 500 MG, VIAL MATE ADAPTER 1 EACH in NS 250 ML IV SCH ×2 (03:09→03:16)
[2021-03-02] MEDS: OLANZapine INTRAMUSCULAR 10MG VIAL IM ONE ×2 (03:16→05:00)
[2021-03-02 04:03] LABS: CALCIUM LEVEL 7.6 MG/DL (8.8-10.2); CREATININE FOR GFR 4.25 MG/DL (0.55-1.30); GLOMERULAR FILTRATION RATE 10.6 (>32)
[2021-03-02] MEDS ORDERED: NS 1,000 ML IV SCH ×3 (05:05→10:40)
[2021-03-02] MEDS: IPRATROPIUM 0.5MG/ALBUTEROL 2.5MG INH SOL UD 3ML (DUONEB) NEB SCH ×4 (05:51→19:56)
[2021-03-02] MEDS: methylPREDNISolone 40MG 1ML VIAL IV SCH ×3 (06:19→18:07)
[2021-03-02] MEDS: PIPERACILLIN/TAZOBACTAM SOD 2.25 GM in D5W MINI-BAG PLUS 50 ML IV SCH ×2 (06:39→09:24)
[2021-03-02 08:32] LABS: HEMATOCRIT 47.9 % (36.0-47.0); MEAN CORPUSCULAR HEMOGLOBIN 25.8 pg (27.0-33.0); MEAN CORPUSCULAR HGB CONC 29.2 g/dl (32.0-36.5); MEAN CORPUSCULAR VOLUME 88.4 fl (80.0-96.0); PLATELET COUNT, AUTOMATED 252 10^3/uL (150-450); RED BLOOD COUNT 5.42 10^6/uL (4.00-5.40); WHITE BLOOD COUNT 17.8 10^3/uL (4.0-10.0)
[2021-03-02] MEDS: HEPARIN SOD (PORCINE) 5000UNITS/ML 1ML VIAL/SYRINGE SC SCH ×2 (09:24→20:34)
[2021-03-02] MEDS: PANTOPRAZOLE 40MG VIAL (C9113 PER 1) IV SCH (09:24)
[2021-03-02 09:27] LABS: ATYPICAL LYMPH 3 % (0-5); LYMPHOCYTES 8 % (16-44); METAMYELOCYTES 5 % (0-0); MONOCYTES 5 % (0-5); MYELOCYTES 4 % (0-0); NEUTROPHILS 29 % (28-66)
[2021-03-02 09:30] LABS: OVALOCYTES 1+; PLATELET ESTIMATE NORMAL (NORMAL)
[2021-03-02] MEDS: D5W/0.9% SODIUM CHLORIDE 1,000 ML IV SCH ×2 (10:40→20:34)
[2021-03-02 13:27] LABS: CALCIUM LEVEL 7.8 MG/DL (8.8-10.2); CREATININE FOR GFR 4.5 MG/DL (0.55-1.30); GLOMERULAR FILTRATION RATE 9.9 (>32); POTASSIUM SERUM 4.5 MEQ/L (3.5-5.1)
[2021-03-02 14:01] LABS: FREE THYROXINE INDEX 2.8 % (1.3-4.8); THYROID STIMULATING HORMONE 0.943 uIU/ML (0.358-3.740); THYROXINE (T4) 7.9 UG/DL (4.5-12.0)
[2021-03-02] MEDS: AMPICILLIN SOD/SULBACTAM SOD 3 GM in D5W MINI-BAG PLUS 100 ML IV SCH (14:39)
[2021-03-02] MEDS ORDERED: AMPICILLIN SOD/SULBACTAM SOD 1.5 GM in D5W MINI-BAG PLUS 50 ML IV SCH (16:00)
[2021-03-03] MEDS: HumaLOG INSULIN (NovoLOG) PER UNIT SC SCH ×4 (00:14→18:00)
[2021-03-03] MEDS: methylPREDNISolone 40MG 1ML VIAL IV SCH ×4 (00:14→18:15)
[2021-03-03] MEDS: IPRATROPIUM 0.5MG/ALBUTEROL 2.5MG INH SOL UD 3ML (DUONEB) NEB SCH ×4 (00:29→19:53)
[2021-03-03] MEDS: D5W/0.9% SODIUM CHLORIDE 1,000 ML IV SCH (03:11)
[2021-03-03 04:00] VITALS: BP 130/58
[2021-03-03 08:00] VITALS: BP 142/63
[2021-03-03] MEDS: PANTOPRAZOLE 40MG VIAL (C9113 PER 1) IV SCH (08:21)
[2021-03-03] MEDS: HEPARIN SOD (PORCINE) 5000UNITS/ML 1ML VIAL/SYRINGE SC SCH ×2 (08:21→21:22)
[2021-03-03 08:23] LABS: HEMATOCRIT 42.6 % (36.0-47.0); HEMOGLOBIN 12.7 g/dl (12.0-15.5); MEAN CORPUSCULAR HEMOGLOBIN 25.5 pg (27.0-33.0); MEAN CORPUSCULAR HGB CONC 29.8 g/dl (32.0-36.5); MEAN CORPUSCULAR VOLUME 85.5 fl (80.0-96.0); PLATELET COUNT, AUTOMATED 227 10^3/uL (150-450); RED BLOOD COUNT 4.98 10^6/uL (4.00-5.40); WHITE BLOOD COUNT 18.4 10^3/uL (4.0-10.0)
[2021-03-03 09:25] LABS: LYMPHOCYTES 6 % (16-44); MONOCYTES 1 % (0-5); NEUTROPHILS 93 % (28-66); PLATELET ESTIMATE NORMAL (NORMAL)
[2021-03-03 09:45] LABS: CALCIUM LEVEL 7.8 MG/DL (8.8-10.2); CREATININE FOR GFR 3.13 MG/DL (0.55-1.30); GLOMERULAR FILTRATION RATE 15.1 (>32); POTASSIUM SERUM 3.2 MEQ/L (3.5-5.1)
[2021-03-03 11:38] LABS: CALCIUM LEVEL 8.2 MG/DL (8.8-10.2); CREATININE FOR GFR 2.82 MG/DL (0.55-1.30); POTASSIUM SERUM 3.3 MEQ/L (3.5-5.1)
[2021-03-03] MEDS ORDERED: KCL 10MEQ/100ML SWI (KRUN) 10 MEQ in IV 1 EA IV ONE ×2 (11:45→12:45)
[2021-03-03 12:00] VITALS: BP 149/67
[2021-03-03] MEDS: LR 1,000 ML IV SCH ×2 (12:07→21:31)
[2021-03-03] MEDS: AMPICILLIN SOD/SULBACTAM SOD 3 GM in D5W MINI-BAG PLUS 100 ML IV SCH (14:58)
[2021-03-03 16:00] VITALS: BP 118/61
[2021-03-03 20:00] VITALS: BP 117/86
[2021-03-04] VITALS (9 sets, daily range): BP systolic 123–159; BP diastolic 59–71
[2021-03-04] MEDS: IPRATROPIUM 0.5MG/ALBUTEROL 2.5MG INH SOL UD 3ML (DUONEB) NEB SCH ×4 (00:21→20:00)
[2021-03-04] MEDS: methylPREDNISolone 40MG 1ML VIAL IV SCH ×5 (00:31→23:58)
[2021-03-04] MEDS: HumaLOG INSULIN (NovoLOG) PER UNIT SC SCH ×5 (00:37→23:59)
[2021-03-04 04:55] LABS: BASO % 0.2 % (0.0-1.0); HEMATOCRIT 41.5 % (36.0-47.0); HEMOGLOBIN 12.3 g/dl (12.0-15.5); LYMPH # 0.5 10^3/uL (1.5-5.0); LYMPH % 3.3 % (24.0-44.0); MEAN CORPUSCULAR HEMOGLOBIN 25.7 pg (27.0-33.0); MEAN CORPUSCULAR HGB CONC 29.6 g/dl (32.0-36.5); MEAN CORPUSCULAR VOLUME 86.8 fl (80.0-96.0); MONO # 0.5 10^3/uL (0.0-0.8); MONO % 2.9 % (2.0-8.0); NEUTROPHILS % 92.7 % (36.0-66.0); PLATELET COUNT, AUTOMATED 197 10^3/uL (150-450); RED BLOOD COUNT 4.78 10^6/uL (4.00-5.40); WHITE BLOOD COUNT 16.2 10^3/uL (4.0-10.0)
[2021-03-04 05:37] LABS: CALCIUM LEVEL 8.2 MG/DL (8.8-10.2); CREATININE FOR GFR 1.53 MG/DL (0.55-1.30); GLOMERULAR FILTRATION RATE 34.5 (>32); POTASSIUM SERUM 3.3 MEQ/L (3.5-5.1)
[2021-03-04] MEDS: KCL 10MEQ/100ML SWI (KRUN) 10 MEQ in IV 1 EA IV SCH ×6 (07:57→18:18)
[2021-03-04] MEDS: LR 1,000 ML IV SCH (07:57)
[2021-03-04] MEDS: PANTOPRAZOLE 40MG VIAL (C9113 PER 1) IV SCH (09:40)
[2021-03-04] MEDS: HEPARIN SOD (PORCINE) 5000UNITS/ML 1ML VIAL/SYRINGE SC SCH ×2 (09:41→21:15)
[2021-03-04] MEDS: AMPICILLIN SOD/SULBACTAM SOD 3 GM in D5W MINI-BAG PLUS 100 ML IV SCH ×2 (09:57→21:15)
[2021-03-04] MEDS: D5W 1,000 ML IV SCH ×2 (11:21→21:18)
[2021-03-04 16:09] LABS: BODY FLUID CULTURE Not indicated. (.); LEGIONELLA ANTIGEN URINE Negative (Negative); ORGANISM ID Not indicated. (.); SPECIMEN SOURCE Urine (.); URINE STREP PNEUMONIAE ANTIGEN Negative (Negative)
[2021-03-04 16:14] LABS: CALCIUM LEVEL 8.4 MG/DL (8.8-10.2); CREATININE FOR GFR 1.15 MG/DL (0.55-1.30); POTASSIUM SERUM 3.6 MEQ/L (3.5-5.1)
[2021-03-04 20:54] LABS: CALCIUM LEVEL 8.6 MG/DL (8.8-10.2); CREATININE FOR GFR 1.18 MG/DL (0.55-1.30); GLOMERULAR FILTRATION RATE 46.6 (>32); POTASSIUM SERUM 4.7 MEQ/L (3.5-5.1)
[2021-03-05] VITALS: BP 122/62
[2021-03-05] MEDS: IPRATROPIUM 0.5MG/ALBUTEROL 2.5MG INH SOL UD 3ML (DUONEB) NEB SCH ×4 (00:05→20:07)
[2021-03-05 00:10] LABS: CALCIUM LEVEL 8.1 MG/DL (8.8-10.2); CREATININE FOR GFR 1.02 MG/DL (0.55-1.30); GLOMERULAR FILTRATION RATE 55.1 (>32); POTASSIUM SERUM 3.6 MEQ/L (3.5-5.1)
[2021-03-05 04:00] VITALS: BP 122/62
[2021-03-05] MEDS: HumaLOG INSULIN (NovoLOG) PER UNIT SC SCH ×3 (05:26→17:57)
[2021-03-05] MEDS: methylPREDNISolone 40MG 1ML VIAL IV SCH ×3 (05:26→17:57)
[2021-03-05 06:53] LABS: BASO % 0.2 % (0.0-1.0); HEMATOCRIT 38.6 % (36.0-47.0); HEMOGLOBIN 11.4 g/dl (12.0-15.5); LYMPH # 0.7 10^3/uL (1.5-5.0); LYMPH % 4.4 % (24.0-44.0); MEAN CORPUSCULAR HEMOGLOBIN 25.4 pg (27.0-33.0); MEAN CORPUSCULAR HGB CONC 29.5 g/dl (32.0-36.5); MEAN CORPUSCULAR VOLUME 86.2 fl (80.0-96.0); MONO # 0.4 10^3/uL (0.0-0.8); MONO % 2.9 % (2.0-8.0); NEUTROPHILS # 13.8 10^3/uL (1.5-8.5); NEUTROPHILS % 91.3 % (36.0-66.0); PLATELET COUNT, AUTOMATED 167 10^3/uL (150-450); RED BLOOD COUNT 4.48 10^6/uL (4.00-5.40); WHITE BLOOD COUNT 15.1 10^3/uL (4.0-10.0)
[2021-03-05 07:14] LABS: BLOOD UREA NITROGEN 25 MG/DL (7-18); CALCIUM LEVEL 8.1 MG/DL (8.8-10.2); CARBON DIOXIDE LEVEL 29 MEQ/L (21-32); CHLORIDE LEVEL 113 MEQ/L (98-107); CREATININE FOR GFR 0.91 MG/DL (0.55-1.30); GLOMERULAR FILTRATION RATE > 60.0 (>32); GLUCOSE, FASTING 148 MG/DL (70-100); POTASSIUM SERUM 3.5 MEQ/L (3.5-5.1); SODIUM LEVEL 146 MEQ/L (136-145)
[2021-03-05 07:48] VITALS: BP 143/77
[2021-03-05] MEDS: D5W 1,000 ML IV SCH ×3 (08:00→23:10)
[2021-03-05] MEDS: HEPARIN SOD (PORCINE) 5000UNITS/ML 1ML VIAL/SYRINGE SC SCH ×2 (08:55→19:55)
[2021-03-05] MEDS: PANTOPRAZOLE 40MG VIAL (C9113 PER 1) IV SCH (08:55)
[2021-03-05] MEDS: AMPICILLIN SOD/SULBACTAM SOD 3 GM in D5W MINI-BAG PLUS 100 ML IV SCH ×3 (08:56→19:55)
[2021-03-05] MEDS: KCL 10MEQ/100ML SWI (KRUN) 10 MEQ in IV 1 EA IV SCH ×2 (09:46→10:57)
[2021-03-05 12:25] VITALS: BP 139/70
[2021-03-05 12:56] LABS: CALCIUM LEVEL 8.6 MG/DL (8.8-10.2); CREATININE FOR GFR 0.99 MG/DL (0.55-1.30); POTASSIUM SERUM 3.9 MEQ/L (3.5-5.1)
[2021-03-05 15:35] LABS: CALCIUM LEVEL 8.5 MG/DL (8.8-10.2); CREATININE FOR GFR 0.99 MG/DL (0.55-1.30); POTASSIUM SERUM 3.8 MEQ/L (3.5-5.1)
[2021-03-05 19:23] LABS: BLOOD UREA NITROGEN 23 MG/DL (7-18); CALCIUM LEVEL 8.3 MG/DL (8.8-10.2); CARBON DIOXIDE LEVEL 29 MEQ/L (21-32); CHLORIDE LEVEL 109 MEQ/L (98-107); CREATININE FOR GFR 0.79 MG/DL (0.55-1.30); GLOMERULAR FILTRATION RATE > 60.0 (>32); GLUCOSE, FASTING 140 MG/DL (70-100); POTASSIUM SERUM 3.6 MEQ/L (3.5-5.1); SODIUM LEVEL 146 MEQ/L (136-145)
[2021-03-05 20:00] VITALS: BP 144/64
[2021-03-05 21:28] VITALS: BP 144/73
[2021-03-06] VITALS (8 sets, daily range): BP systolic 124–150; BP diastolic 52–82
[2021-03-06] MEDS: methylPREDNISolone 40MG 1ML VIAL IV SCH ×4 (00:30→18:43)
[2021-03-06] MEDS: HumaLOG INSULIN (NovoLOG) PER UNIT SC SCH ×4 (00:30→18:43)
[2021-03-06] MEDS: IPRATROPIUM 0.5MG/ALBUTEROL 2.5MG INH SOL UD 3ML (DUONEB) NEB SCH ×4 (02:00→17:25)
[2021-03-06] MEDS: AMPICILLIN SOD/SULBACTAM SOD 3 GM in D5W MINI-BAG PLUS 100 ML IV SCH ×4 (05:47→20:14)
[2021-03-06 06:19] LABS: BASO % 0.3 % (0.0-1.0); HEMATOCRIT 38.4 % (36.0-47.0); HEMOGLOBIN 11.6 g/dl (12.0-15.5); LYMPH # 0.6 10^3/uL (1.5-5.0); LYMPH % 4.9 % (24.0-44.0); MEAN CORPUSCULAR HEMOGLOBIN 25.6 pg (27.0-33.0); MEAN CORPUSCULAR HGB CONC 30.2 g/dl (32.0-36.5); MEAN CORPUSCULAR VOLUME 84.6 fl (80.0-96.0); MONO # 0.4 10^3/uL (0.0-0.8); MONO % 3.3 % (2.0-8.0); NEUTROPHILS % 89.1 % (36.0-66.0); PLATELET COUNT, AUTOMATED 139 10^3/uL (150-450); RED BLOOD COUNT 4.54 10^6/uL (4.00-5.40); WHITE BLOOD COUNT 11.3 10^3/uL (4.0-10.0)
[2021-03-06 06:38] LABS: BLOOD UREA NITROGEN 20 MG/DL (7-18); CALCIUM LEVEL 8.1 MG/DL (8.8-10.2); CARBON DIOXIDE LEVEL 29 MEQ/L (21-32); CHLORIDE LEVEL 109 MEQ/L (98-107); CREATININE FOR GFR 0.74 MG/DL (0.55-1.30); GLOMERULAR FILTRATION RATE > 60.0 (>32); GLUCOSE, FASTING 140 MG/DL (70-100); MAGNESIUM LEVEL 1.9 MG/DL (1.8-2.4); PHOSPHORUS LEVEL 2.2 MG/DL (2.5-4.9); POTASSIUM SERUM 3.4 MEQ/L (3.5-5.1); SODIUM LEVEL 143 MEQ/L (136-145)
[2021-03-06] MEDS: PANTOPRAZOLE 40MG VIAL (C9113 PER 1) IV SCH (09:47)
[2021-03-06 11:54] LABS: RSV AMPLIFICATION NEGATIVE (NEGATIVE)
[2021-03-06] MEDS ORDERED: BUPIVACAINE HCL 0.25% 30ML VIAL As Ordered ONE (13:05)
[2021-03-06] MEDS ORDERED: ceFAZolin 2 GM/D5W 50 ML IV BAG (J0690 PER 500MG) As Ordered ONE (14:11)
[2021-03-06] MEDS ORDERED: cefoTEtan INJ 2GM VIAL (S0074 PER 500MG) As Ordered ONE (14:12)
[2021-03-06] MEDS ORDERED: PHENYLephrine 500MCG 5ML (100MCG/ML) SYRINGE As Ordered ONE (14:48)
[2021-03-06] MEDS ORDERED: ETOMIDATE INJ 20MG/10ML VIAL As Ordered ONE (14:48)
[2021-03-06] MEDS ORDERED: MIDAZOLAM INJ 2MG/2ML VIAL (J2250 PER 1MG) As Ordered ONE (14:48)
[2021-03-06] MEDS ORDERED: ONDANSETRON 4MG/2ML VIAL As Ordered ONE (14:48)
[2021-03-06] MEDS ORDERED: SUGAMMADEX SODIUM 500 MG/5 ML VIAL (BRIDION) As Ordered ONE (14:48)
[2021-03-06] MEDS ORDERED: HYDROmorphone HCL 2MG/ML 1ML VIAL As Ordered ONE (14:48)
[2021-03-06] MEDS ORDERED: propofoL 200 MG/20 ML VIAL As Ordered ONE (14:48)
[2021-03-06] MEDS ORDERED: ACETAMINOPHEN 1000MG 100ML IV BTL (OFIRMEV) (J0131 PER 10MG) As Ordered ONE (14:48)
[2021-03-06] MEDS ORDERED: dexameTHASONE 4 MG/ML 1ML VIAL (J1100 PER 1MG) As Ordered ONE (14:48)
[2021-03-06] MEDS ORDERED: fentaNYL 250 MCG/5 ML INJECTION (J3010) As Ordered ONE (14:48)
[2021-03-06] MEDS ORDERED: ePHEDrine SULFATE 25 MG/5 ML(5MG/ML) SYRINGE As Ordered ONE (14:48)
[2021-03-06] MEDS ORDERED: ROCURONIUM BROMIDE 50 MG/5 ML VIAL As Ordered ONE (14:48)
[2021-03-06] MEDS ORDERED: LIDOCAINE 2% 100MG/5ML SDV (FOR ANES.) As Ordered ONE (14:48)
[2021-03-06] MEDS ORDERED: ACETAMINOPHEN TAB 650MG DOSE (2X325MG) PO PRN (15:45)
[2021-03-06] MEDS ORDERED: ACETAMINOPH W/CODEINE #3 TAB UD PO PRN (15:45)
[2021-03-07] MEDS: methylPREDNISolone 40MG 1ML VIAL IV SCH ×4 (00:51→18:40)
[2021-03-07] MEDS: IPRATROPIUM 0.5MG/ALBUTEROL 2.5MG INH SOL UD 3ML (DUONEB) NEB SCH ×4 (00:54→19:31)
[2021-03-07 00:56] VITALS: BP 126/59
[2021-03-07] MEDS: AMPICILLIN SOD/SULBACTAM SOD 3 GM in D5W MINI-BAG PLUS 100 ML IV SCH ×4 (03:18→21:54)
[2021-03-07] MEDS: HumaLOG INSULIN (NovoLOG) PER UNIT SC SCH ×5 (05:35→21:00)
[2021-03-07 05:41] VITALS: BP 141/70
[2021-03-07 06:22] LABS: BASO # 0.1 10^3/uL (0.0-0.2); BASO % 0.4 % (0.0-1.0); HEMATOCRIT 39.1 % (36.0-47.0); HEMOGLOBIN 11.9 g/dl (12.0-15.5); LYMPH # 0.5 10^3/uL (1.5-5.0); LYMPH % 3.8 % (24.0-44.0); MEAN CORPUSCULAR HEMOGLOBIN 25.7 pg (27.0-33.0); MEAN CORPUSCULAR HGB CONC 30.4 g/dl (32.0-36.5); MEAN CORPUSCULAR VOLUME 84.4 fl (80.0-96.0); MONO # 0.4 10^3/uL (0.0-0.8); NEUTROPHILS # 11.4 10^3/uL (1.5-8.5); NEUTROPHILS % 89.3 % (36.0-66.0); PLATELET COUNT, AUTOMATED 142 10^3/uL (150-450); RED BLOOD COUNT 4.63 10^6/uL (4.00-5.40); WHITE BLOOD COUNT 12.7 10^3/uL (4.0-10.0)
[2021-03-07 06:45] LABS: BLOOD UREA NITROGEN 15 MG/DL (7-18); CALCIUM LEVEL 7.7 MG/DL (8.8-10.2); CARBON DIOXIDE LEVEL 32 MEQ/L (21-32); CHLORIDE LEVEL 107 MEQ/L (98-107); CREATININE FOR GFR 0.81 MG/DL (0.55-1.30); GLOMERULAR FILTRATION RATE > 60.0 (>32); GLUCOSE, FASTING 112 MG/DL (70-100); POTASSIUM SERUM 3.1 MEQ/L (3.5-5.1); SODIUM LEVEL 142 MEQ/L (136-145)
[2021-03-07] MEDS: KCL 10MEQ/100ML SWI (KRUN) 10 MEQ in IV 1 EA IV SCH ×5 (07:51→20:38)
[2021-03-07] MEDS ORDERED: POTASSIUM PHOSPHATE INJ 15 MMOL in D5W 250 ML IV ONE (09:00)
[2021-03-07 10:00] VITALS: BP 141/71
[2021-03-07] MEDS: PANTOPRAZOLE 40MG VIAL (C9113 PER 1) IV SCH (10:31)
[2021-03-07] MEDS: ENOXAPARIN 40MG/0.4ML SYRINGE (J1650 PER 10MG) SC SCH (13:20)
[2021-03-07] MEDS: guaiFENesin ER 600 MG TAB PO SCH ×2 (13:20→21:53)
[2021-03-07 14:00] VITALS: BP 135/76
[2021-03-07 16:56] LABS: MAGNESIUM LEVEL 1.7 MG/DL (1.8-2.4); POTASSIUM SERUM 3.5 MEQ/L (3.5-5.1)
[2021-03-07] MEDS ORDERED: MAG SULF 1GM/100ML (MAG RUN) 1 GM in IV 1 EA IV ONE (18:00)
[2021-03-07 19:33] VITALS: BP 138/78
[2021-03-07 20:00] VITALS: BP 126/61
[2021-03-08] MEDS: methylPREDNISolone 40MG 1ML VIAL IV SCH ×3 (00:28→12:11)
[2021-03-08] MEDS: IPRATROPIUM 0.5MG/ALBUTEROL 2.5MG INH SOL UD 3ML (DUONEB) NEB SCH ×4 (01:24→21:36)
[2021-03-08] MEDS: AMPICILLIN SOD/SULBACTAM SOD 3 GM in D5W MINI-BAG PLUS 100 ML IV SCH ×4 (04:11→21:36)
[2021-03-08 06:00] VITALS: BP 129/54
[2021-03-08 06:23] LABS: BASO % 0.3 % (0.0-1.0); HEMOGLOBIN 11.6 g/dl (12.0-15.5); LYMPH # 0.5 10^3/uL (1.5-5.0); LYMPH % 4.2 % (24.0-44.0); MEAN CORPUSCULAR HGB CONC 30.5 g/dl (32.0-36.5); MONO # 0.4 10^3/uL (0.0-0.8); MONO % 2.9 % (2.0-8.0); NEUTROPHILS # 11.4 10^3/uL (1.5-8.5); NEUTROPHILS % 87.7 % (36.0-66.0); PLATELET COUNT, AUTOMATED 136 10^3/uL (150-450); RED BLOOD COUNT 4.47 10^6/uL (4.00-5.40)
[2021-03-08 06:45] LABS: BLOOD UREA NITROGEN 12 MG/DL (7-18); CALCIUM LEVEL 7.4 MG/DL (8.8-10.2); CARBON DIOXIDE LEVEL 31 MEQ/L (21-32); CHLORIDE LEVEL 109 MEQ/L (98-107); CREATININE FOR GFR 0.68 MG/DL (0.55-1.30); GLOMERULAR FILTRATION RATE > 60.0 (>32); GLUCOSE, FASTING 135 MG/DL (70-100); PHOSPHORUS LEVEL 2.5 MG/DL (2.5-4.9); POTASSIUM SERUM 3.9 MEQ/L (3.5-5.1); SODIUM LEVEL 143 MEQ/L (136-145)
[2021-03-08] MEDS: guaiFENesin ER 600 MG TAB PO SCH ×2 (08:05→21:36)
[2021-03-08] MEDS: HumaLOG INSULIN (NovoLOG) PER UNIT SC SCH ×4 (08:05→21:00)
[2021-03-08] MEDS: PANTOPRAZOLE 40MG VIAL (C9113 PER 1) IV SCH (08:06)
[2021-03-08] MEDS: ENOXAPARIN 40MG/0.4ML SYRINGE (J1650 PER 10MG) SC SCH (08:06)
[2021-03-08] MEDS ORDERED: ENOXAPARIN 40MG/0.4ML SYRINGE (J1650 PER 10MG) SC SCH (09:00)
[2021-03-08 09:17] LABS: MAGNESIUM LEVEL 1.9 MG/DL (1.8-2.4)
[2021-03-08 14:00] VITALS: BP 124/61
[2021-03-08 22:00] VITALS: BP 110/61
[2021-03-09] MEDS ORDERED: methylPREDNISolone 40MG 1ML VIAL IV SCH
[2021-03-09] MEDS: IPRATROPIUM 0.5MG/ALBUTEROL 2.5MG INH SOL UD 3ML (DUONEB) NEB SCH ×4 (02:00→20:41)
[2021-03-09] MEDS: AMPICILLIN SOD/SULBACTAM SOD 3 GM in D5W MINI-BAG PLUS 100 ML IV SCH ×3 (03:19→15:57)
[2021-03-09 06:00] VITALS: BP 107/58
[2021-03-09 07:08] LABS: BASO # 0.1 10^3/uL (0.0-0.2); BASO % 0.3 % (0.0-1.0); HEMATOCRIT 31.5 % (36.0-47.0); HEMOGLOBIN 9.4 g/dl (12.0-15.5); LYMPH # 0.5 10^3/uL (1.5-5.0); LYMPH % 2.4 % (24.0-44.0); MEAN CORPUSCULAR HEMOGLOBIN 25.5 pg (27.0-33.0); MEAN CORPUSCULAR HGB CONC 29.8 g/dl (32.0-36.5); MEAN CORPUSCULAR VOLUME 85.4 fl (80.0-96.0); MONO # 0.5 10^3/uL (0.0-0.8); MONO % 2.3 % (2.0-8.0); NEUTROPHILS # 18.6 10^3/uL (1.5-8.5); NEUTROPHILS % 92.4 % (36.0-66.0); PLATELET COUNT, AUTOMATED 149 10^3/uL (150-450); RED BLOOD COUNT 3.69 10^6/uL (4.00-5.40); WHITE BLOOD COUNT 20.2 10^3/uL (4.0-10.0)
[2021-03-09 07:53] LABS: ALBUMIN 1.8 GM/DL (3.2-5.2); ALT/SGPT 42 U/L (12-78); BILIRUBIN,TOTAL 0.4 MG/DL (0.2-1.0); BLOOD UREA NITROGEN 17 MG/DL (7-18); CALCIUM LEVEL 7.5 MG/DL (8.8-10.2); CARBON DIOXIDE LEVEL 31 MEQ/L (21-32); CHLORIDE LEVEL 109 MEQ/L (98-107); CREATININE FOR GFR 0.77 MG/DL (0.55-1.30); GLOMERULAR FILTRATION RATE > 60.0 (>32); GLUCOSE, FASTING 136 MG/DL (70-100); MAGNESIUM LEVEL 1.8 MG/DL (1.8-2.4); POTASSIUM SERUM 3.1 MEQ/L (3.5-5.1); SODIUM LEVEL 145 MEQ/L (136-145); TOTAL PROTEIN 4.4 GM/DL (6.4-8.2)
[2021-03-09 08:11] VITALS: O2SAT 93
[2021-03-09] MEDS: ENOXAPARIN 40MG/0.4ML SYRINGE (J1650 PER 10MG) SC SCH (08:20)
[2021-03-09] MEDS: PANTOPRAZOLE 40MG VIAL (C9113 PER 1) IV SCH (08:20)
[2021-03-09] MEDS: HumaLOG INSULIN (NovoLOG) PER UNIT SC SCH ×4 (08:23→21:00)
[2021-03-09] MEDS: guaiFENesin ER 600 MG TAB PO SCH ×2 (08:23→20:10)
[2021-03-09] MEDS ORDERED: POTASSIUM CHLORIDE 10MEQ SR TABLET PO ONE ×2 (11:15)
[2021-03-09 11:47] LABS: HEMATOCRIT 33.9 % (36.0-47.0)
[2021-03-09 15:37] VITALS: BP 126/64
[2021-03-09] MEDS: KCL 10MEQ/100ML SWI (KRUN) 10 MEQ in IV 1 EA IV SCH ×4 (16:52→20:10)
[2021-03-09] MEDS: AUGMENTIN 875 MG TAB PO SCH (20:10)
[2021-03-09 20:41] LABS: BLOOD UREA NITROGEN 18 MG/DL (7-18); CALCIUM LEVEL 7.5 MG/DL (8.8-10.2); CARBON DIOXIDE LEVEL 33 MEQ/L (21-32); CHLORIDE LEVEL 106 MEQ/L (98-107); CREATININE FOR GFR 0.74 MG/DL (0.55-1.30); GLOMERULAR FILTRATION RATE > 60.0 (>32); GLUCOSE, FASTING 84 MG/DL (70-100); POTASSIUM SERUM 3.6 MEQ/L (3.5-5.1); SODIUM LEVEL 142 MEQ/L (136-145)
[2021-03-09 22:00] VITALS: BP 125/62
[2021-03-10] MEDS: IPRATROPIUM 0.5MG/ALBUTEROL 2.5MG INH SOL UD 3ML (DUONEB) NEB SCH ×4 (01:33→20:16)
[2021-03-10 05:52] LABS: BASO % 0.1 % (0.0-1.0); EOS % 0.2 % (0.0-3.0); HEMATOCRIT 28.7 % (36.0-47.0); HEMOGLOBIN 8.7 g/dl (12.0-15.5); LYMPH # 1.3 10^3/uL (1.5-5.0); LYMPH % 8.4 % (24.0-44.0); MEAN CORPUSCULAR HEMOGLOBIN 25.9 pg (27.0-33.0); MEAN CORPUSCULAR HGB CONC 30.3 g/dl (32.0-36.5); MEAN CORPUSCULAR VOLUME 85.4 fl (80.0-96.0); MONO # 0.7 10^3/uL (0.0-0.8); MONO % 4.4 % (2.0-8.0); NEUTROPHILS # 13.5 10^3/uL (1.5-8.5); NEUTROPHILS % 84.3 % (36.0-66.0); PLATELET COUNT, AUTOMATED 158 10^3/uL (150-450); RED BLOOD COUNT 3.36 10^6/uL (4.00-5.40)
[2021-03-10 06:00] VITALS: BP 125/60
[2021-03-10 06:23] LABS: ALT/SGPT 35 U/L (12-78); BILIRUBIN,TOTAL 0.5 MG/DL (0.2-1.0); BLOOD UREA NITROGEN 16 MG/DL (7-18); CALCIUM LEVEL 7.5 MG/DL (8.8-10.2); CARBON DIOXIDE LEVEL 32 MEQ/L (21-32); CHLORIDE LEVEL 108 MEQ/L (98-107); CREATININE FOR GFR 0.69 MG/DL (0.55-1.30); GLOMERULAR FILTRATION RATE > 60.0 (>32); GLUCOSE, FASTING 84 MG/DL (70-100); MAGNESIUM LEVEL 1.6 MG/DL (1.8-2.4); POTASSIUM SERUM 3.5 MEQ/L (3.5-5.1); SODIUM LEVEL 141 MEQ/L (136-145); TOTAL PROTEIN 4.4 GM/DL (6.4-8.2)
[2021-03-10] MEDS ORDERED: MAG SULF 1GM/100ML (MAG RUN) 1 GM in IV 1 EA IV ONE (08:00)
[2021-03-10] MEDS: HumaLOG INSULIN (NovoLOG) PER UNIT SC SCH ×4 (08:31→20:47)
[2021-03-10 08:42] LABS: INR 1.07; PROTHROMBIN TIME 14.3 SECONDS (12.7-14.5)
[2021-03-10 08:43] LABS: PARTIAL THROMBOPLASTIN TIME 37.6 SECONDS (25.9-37.0)
[2021-03-10] MEDS: AUGMENTIN 875 MG TAB PO SCH (08:47)
[2021-03-10] MEDS: predniSONE 20 MG TAB PO SCH (08:47)
[2021-03-10] MEDS: guaiFENesin ER 600 MG TAB PO SCH ×2 (08:48→20:46)
[2021-03-10] MEDS: PANTOPRAZOLE 40MG VIAL (C9113 PER 1) IV SCH (08:48)
[2021-03-10] MEDS: ENOXAPARIN 40MG/0.4ML SYRINGE (J1650 PER 10MG) SC SCH (08:49)
[2021-03-10 14:00] VITALS: BP 108/60
[2021-03-10 17:01] LABS: HEMATOCRIT 30.5 % (36.0-47.0); HEMOGLOBIN 9.2 g/dl (12.0-15.5)
[2021-03-10 21:00] VITALS: BP 123/61
[2021-03-11] MEDS: IPRATROPIUM 0.5MG/ALBUTEROL 2.5MG INH SOL UD 3ML (DUONEB) NEB SCH ×2 (01:39→07:27)
[2021-03-11 06:00] VITALS: BP 124/60
[2021-03-11 06:48] LABS: BASO % 0.2 % (0.0-1.0); EOS # 0.1 10^3/uL (0.0-0.5); EOS % 0.6 % (0.0-3.0); LYMPH # 1.1 10^3/uL (1.5-5.0); MEAN CORPUSCULAR HEMOGLOBIN 26.1 pg (27.0-33.0); MEAN CORPUSCULAR HGB CONC 30.8 g/dl (32.0-36.5); MONO # 0.7 10^3/uL (0.0-0.8); MONO % 4.1 % (2.0-8.0); NEUTROPHILS # 13.7 10^3/uL (1.5-8.5); PLATELET COUNT, AUTOMATED 171 10^3/uL (150-450); RED BLOOD COUNT 3.06 10^6/uL (4.00-5.40)
[2021-03-11 07:12] LABS: ALBUMIN 1.8 GM/DL (3.2-5.2); ALT/SGPT 25 U/L (12-78); BILIRUBIN,TOTAL 0.5 MG/DL (0.2-1.0); BLOOD UREA NITROGEN 12 MG/DL (7-18); CALCIUM LEVEL 7.4 MG/DL (8.8-10.2); CARBON DIOXIDE LEVEL 30 MEQ/L (21-32); CHLORIDE LEVEL 110 MEQ/L (98-107); CREATININE FOR GFR 0.54 MG/DL (0.55-1.30); GLOMERULAR FILTRATION RATE > 60.0 (>32); GLUCOSE, FASTING 83 MG/DL (70-100); MAGNESIUM LEVEL 1.8 MG/DL (1.8-2.4); POTASSIUM SERUM 3.6 MEQ/L (3.5-5.1); SODIUM LEVEL 142 MEQ/L (136-145); TOTAL PROTEIN 4.2 GM/DL (6.4-8.2)
[2021-03-11] MEDS: HumaLOG INSULIN (NovoLOG) PER UNIT SC SCH (07:30)
[2021-03-11] MEDS: predniSONE 20 MG TAB PO SCH (09:06)
[2021-03-11] MEDS: PANTOPRAZOLE 40MG VIAL (C9113 PER 1) IV SCH (09:06)
[2021-03-11] MEDS: guaiFENesin ER 600 MG TAB PO SCH (09:07)
[2021-03-11] MEDS ORDERED: PRED20TA PO (09:14)
[2021-03-11 12:08] LABS: PERCENT SATURATION 20.6 % (13.2-45.0)
== END 2021-03-11 12:24 | DRG 853 ==
LOC: M PCU 16:10 → M MSPAV 03-05 20:57
PROVIDERS: ADMIT Family Medicine; ATTEND Internal Medicine
PROC: 0DB80ZZ Excision of Small Intestine, Open Approach (ICD-10-PCS; principal; 2021-03-06 12:30)
DX: A41.9 Sepsis, unspecified organism (principal); J69.0 Pneumonitis due to inhalation of food and vomit; I21.A1 Myocardial infarction type 2; K55.059 Acute (reversible) ischemia of intestine, part and extent unspecified; K42.0 Umbilical hernia with obstruction, without gangrene; N17.9 Acute kidney failure, unspecified; J44.1 Chronic obstructive pulmonary disease with (acute) exacerbation; E87.2 Acidosis; E87.0 Hyperosmolality and hypernatremia; N39.0 Urinary tract infection, site not specified; E11.9 Type 2 diabetes mellitus without complications; E87.6 Hypokalemia; Z66 Do not resuscitate

== ENCOUNTER 2024-04-27 13:08 | Inpatient (IN) | payer MEDICARE, MEDICAID ==
[~2024-04-27] VITALS: Ht 160 cm; Wt 51.0 kg
[~2024-04-27 13:08] MED LIST changes: +ESSE250T PO; +FLUT44IN INH; +FURO20TA2 PO; +IPRA0.00 NEB; -LOSA100T45 PO; +LOSA100T46 PO; +MED REC COMMENT; +METH-1386 PO; -METH25TAB PO; -POTA10CA32 PO; +POTA10CA70 PO; +PRED20TA PO
[2024-04-27 14:05] LABS: BASO # 0.1 10^3/uL (0.0-0.2); BASO % 0.2 % (0.0-1.0); HEMOGLOBIN 12.1 g/dl (12.0-15.5); LYMPH # 0.8 10^3/uL (1.5-5.0); MEAN CORPUSCULAR HEMOGLOBIN 24.8 pg (27.0-33.0); MEAN CORPUSCULAR HGB CONC 29.5 g/dl (32.0-36.5); MEAN CORPUSCULAR VOLUME 84.2 fl (80.0-96.0); MONO # 1.6 10^3/uL (0.0-0.8); MONO % 4.1 % (2.0-8.0); NEUTROPHILS # 35.5 10^3/uL (1.5-8.5); NEUTROPHILS % 92.5 % (36.0-66.0); PLATELET COUNT, AUTOMATED 414 10^3/uL (150-450); RED BLOOD COUNT 4.87 10^6/uL (4.00-5.40)
[2024-04-27] MEDS: IPRATROPIUM 0.5MG/ALBUTEROL 2.5MG INH SOL UD 3ML (DUONEB) NEB ONE (14:06)
[2024-04-27 14:09] LABS: ABG BASE EXCESS 3.3 (-2.0-2.0); ABG HCO3 30.2 MMOL/L (22.0-26.0); ABG O2 SATURATION 94.1 % (95.0-99.0); ABG PARTIAL PRESSURE CO2 56.7 mmHg (35.0-45.0); ABG PARTIAL PRESSURE O2 76.3 mmHg (75.0-100.0); ABG STANDARD HCO3 27.4 MMOL/L. (22.0-26.0); ABG pH (ARTERIAL) 7.345 UNITS (7.350-7.450)
[2024-04-27 14:12] LABS: WHITE BLOOD COUNT 38.4 10^3/uL (4.0-10.0)
[2024-04-27 14:35] LABS: CK-MB VALUE MASS 7.2 NG/ML (<3.6)
[2024-04-27 14:37] LABS: ALBUMIN 2.5 G/DL (3.2-5.2); ALKALINE PHOSPHATASE 106 U/L (35-104); ALT/SGPT 11 U/L (7.0-40); AST/SGOT 35 U/L (<34); BILIRUBIN,DIRECT 0.4 MG/DL (<0.4); BILIRUBIN,TOTAL 0.7 MG/DL (0.3-1.2); BLOOD UREA NITROGEN 32 MG/DL (9-23); CALCIUM LEVEL 8.7 MG/DL (8.3-10.6); CARBON DIOXIDE LEVEL 31 MMOL/L (20-31); CHLORIDE LEVEL 98 MMOL/L (98-107); CREATININE FOR GFR 0.88 MG/DL (0.55-1.30); GLOMERULAR FILTRATION RATE > 60.0 (>32); GLUCOSE, FASTING 128 MG/DL (74-106); MAGNESIUM LEVEL 1.6 MG/DL (1.8-2.4); PHOSPHORUS LEVEL 4.6 MG/DL (2.4-5.1); POTASSIUM SERUM 4.5 MMOL/L (3.5-5.1); SODIUM LEVEL 140 MMOL/L (136-145); TOTAL PROTEIN 6.9 G/DL (5.7-8.2)
[2024-04-27 14:43] LABS: PROCALCITONIN 0.87 ng/ml
[2024-04-27 14:47] LABS: CPK CREATINE PHOSPHOKINASE 162 U/L (34-145); MB/CK RELATIVE INDEX 4.44 (< OR =4)
[2024-04-27] MEDS ORDERED: ISOVUE-370 76% 100ML VIAL As Ordered ONE (14:51)
[2024-04-27] MEDS: MAG SULF 1GM/100ML (MAG RUN) 1 GM in IV 1 EA IV ONE (15:17)
[2024-04-27 15:26] LABS: CK-MB VALUE MASS 6.4 NG/ML (<3.6)
[2024-04-27 15:33] LABS: MB/CK RELATIVE INDEX 4.63 (< OR =4)
[2024-04-27] MEDS: CEFEPIME HCL 2 GM in DEXTROSE 5% (D5W) ADV/MINI-BAG 50 ML IV ONE (15:40)
[2024-04-27 16:01] LABS: KETONE, URINE AUTO RFX NEGATIVE (NEGATIVE); MUCUS, URINE RFX SMALL (NEGATIVE); NITRITE, URINE AUTO RFX NEGATIVE (NEGATIVE); RBC, URINE AUTO RFX 3 /HPF (0-3); SQUAM EPITHELIAL CELL UR AURFX 12 /HPF (0-6)
[2024-04-27 16:04] LABS: LEUKOCYTE ESTERASE UR AUTO RFX 2+ (NEGATIVE); WBC, URINE AUTO RFX 110 /HPF (0-3)
[2024-04-27] MEDS ORDERED: MOM 30ML SUSPENSION UDC PO PRN (16:25)
[2024-04-27] MEDS ORDERED: MAALOX 30 ML SUSP *UDC PO PRN (16:25)
[2024-04-27] MEDS ORDERED: FUROSEMIDE 20MG/2ML VIAL IV SCH (16:35)
[2024-04-27] MEDS ORDERED: ACET-910 PO (16:38)
[2024-04-27] MEDS ORDERED: MILKSUS3 PO (16:38)
[2024-04-27] MEDS ORDERED: ALBU8.5H INH (16:38)
[2024-04-27] MEDS ORDERED: HOME MED LIST COMPLETE! XX SCH (16:40)
[2024-04-27 16:52] VITALS: O2SAT 90
[2024-04-27] MEDS: MAG SULF 1GM/100ML (MAG RUN) 1 GM in IV 1 EA IV SCH (17:05)
[2024-04-27] MEDS ORDERED: AZITHROMYCIN INJ 500 MG, VIAL MATE ADAPTER 1 EACH in NS 250 ML IV SCH (17:10)
[2024-04-27 18:03] LABS: CK-MB VALUE MASS 5.9 NG/ML (<3.6)
[2024-04-27 18:05] LABS: MB/CK RELATIVE INDEX 4.87 (< OR =4)
[2024-04-27 19:20] VITALS: O2SAT 96
[2024-04-27] MEDS: AZITHROMYCIN INJ 500 MG, VIAL MATE ADAPTER 1 EACH in NS 250 ML IV SCH (19:43)
[2024-04-27] MEDS ORDERED: DOXYCYCLINE HYCLATE 100 MG in DEXTROSE 5% (D5W) MINI-BAG PLU 100 ML IV SCH (20:00)
[2024-04-27] MEDS ORDERED: IPRATROPIUM 0.5MG/ALBUTEROL 2.5MG INH SOL UD 3ML (DUONEB) NEB SCH (20:00)
[2024-04-27] MEDS: guaiFENesin ER TABLET 600 MG TAB PO SCH (21:00)
[2024-04-27] MEDS: DOCUSATE SODIUM 100MG CAPSULE PO SCH (21:00)
[2024-04-27 21:24] VITALS: BP 121/68; TEMP 97.4; O2SAT 98
[2024-04-27 22:54] VITALS: O2SAT 100
[2024-04-27 23:23] VITALS: BP 120/58; TEMP 97.2; O2SAT 98
[2024-04-28] VITALS (11 sets, daily range): BP systolic 100–141; BP diastolic 59–78; TEMP 97.7–98; O2SAT 88–100
[2024-04-28] MEDS: VANCOMYCIN HCL 1,250 MG, VIAL MATE ADAPTER 1 EACH in NS 250 ML IV ONE (01:10)
[2024-04-28] MEDS: ALBUTEROL SULFATE 2.5MG/0.5ML INH NEB SOLN NEB SCH (01:45)
[2024-04-28] MEDS: SODIUM CHLORIDE HYPERTONIC 3% 4ML NEB SOL INH SCH (01:46)
[2024-04-28] MEDS: CEFEPIME HCL 1 GM in DEXTROSE 5% (D5W) ADV/MINI-BAG 50 ML IV SCH (05:24)
[2024-04-28 05:47] LABS: BASO # 0.1 10^3/uL (0.0-0.2); BASO % 0.2 % (0.0-1.0); HEMATOCRIT 35.7 % (36.0-47.0); HEMOGLOBIN 10.7 g/dl (12.0-15.5); LYMPH # 0.8 10^3/uL (1.5-5.0); LYMPH % 2.1 % (24.0-44.0); MEAN CORPUSCULAR HEMOGLOBIN 25.2 pg (27.0-33.0); MONO % 2.5 % (2.0-8.0); NEUTROPHILS # 37.7 10^3/uL (1.5-8.5); NEUTROPHILS % 94.3 % (36.0-66.0); PLATELET COUNT, AUTOMATED 377 10^3/uL (150-450); RED BLOOD COUNT 4.25 10^6/uL (4.00-5.40)
[2024-04-28 06:10] LABS: BLOOD UREA NITROGEN 30 MG/DL (9-23); CALCIUM LEVEL 9.4 MG/DL (8.3-10.6); CARBON DIOXIDE LEVEL 33 MMOL/L (20-31); CHLORIDE LEVEL 102 MMOL/L (98-107); CREATININE FOR GFR 0.71 MG/DL (0.55-1.30); GLOMERULAR FILTRATION RATE > 60.0 (>32); GLUCOSE, FASTING 110 MG/DL (74-106); MAGNESIUM LEVEL 2.5 MG/DL (1.8-2.4); POTASSIUM SERUM 4.5 MMOL/L (3.5-5.1); SODIUM LEVEL 144 MMOL/L (136-145)
[2024-04-28] MEDS: BUDESONIDE 0.5 MG/2 ML INHALATION SUSPENSION NEB SCH (07:08)
[2024-04-28] MEDS: OMEPRAZOLE 20MG CAP PO SCH (09:02)
[2024-04-28] MEDS: ENOXAPARIN 40MG/0.4ML SYRINGE (J1650 PER 10MG) SC SCH (09:02)
[2024-04-28] MEDS: VANCOMYCIN HCL 1,000 MG, VIAL MATE ADAPTER 1 EACH in NS 250 ML IV SCH (13:45)
[2024-04-28] MEDS: FUROSEMIDE 20 MG TAB PO SCH (13:45)
[2024-04-28] MEDS: ACETAMINOPHEN 325 MG TAB PO PRN (20:20)
[2024-04-29] VITALS (8 sets, daily range): BP systolic 111–133; BP diastolic 62–87; TEMP 96.9–99.4; O2SAT 86–100
[2024-04-29 06:18] LABS: BASO # 0.1 10^3/uL (0.0-0.2); BASO % 0.2 % (0.0-1.0); EOS % 0.1 % (0.0-3.0); HEMATOCRIT 36.8 % (36.0-47.0); HEMOGLOBIN 10.6 g/dl (12.0-15.5); LYMPH # 1.1 10^3/uL (1.5-5.0); LYMPH % 3.9 % (24.0-44.0); MEAN CORPUSCULAR HEMOGLOBIN 24.5 pg (27.0-33.0); MEAN CORPUSCULAR HGB CONC 28.8 g/dl (32.0-36.5); MONO # 0.8 10^3/uL (0.0-0.8); MONO % 3.1 % (2.0-8.0); NEUTROPHILS # 24.9 10^3/uL (1.5-8.5); NEUTROPHILS % 91.8 % (36.0-66.0); PLATELET COUNT, AUTOMATED 386 10^3/uL (150-450); RED BLOOD COUNT 4.33 10^6/uL (4.00-5.40); WHITE BLOOD COUNT 27.1 10^3/uL (4.0-10.0)
[2024-04-29 06:41] LABS: BLOOD UREA NITROGEN 23 MG/DL (9-23); CALCIUM LEVEL 8.5 MG/DL (8.3-10.6); CARBON DIOXIDE LEVEL 36 MMOL/L (20-31); CHLORIDE LEVEL 103 MMOL/L (98-107); CREATININE FOR GFR 0.65 MG/DL (0.55-1.30); GLOMERULAR FILTRATION RATE > 60.0 (>32); GLUCOSE, FASTING 80 MG/DL (74-106); MAGNESIUM LEVEL 2.1 MG/DL (1.8-2.4); POTASSIUM SERUM 3.8 MMOL/L (3.5-5.1); SODIUM LEVEL 148 MMOL/L (136-145)
[2024-04-29] MEDS: VANCOMYCIN HCL 750 MG, VIAL MATE ADAPTER 1 EACH in NS 250 ML IV SCH (10:02)
[2024-04-30] VITALS (7 sets, daily range): BP systolic 116–149; BP diastolic 58–67; TEMP 97–97.9; O2SAT 91–95
[2024-04-30 08:55] LABS: BASO % 0.2 % (0.0-1.0); EOS % 0.1 % (0.0-3.0); HEMATOCRIT 39.1 % (36.0-47.0); HEMOGLOBIN 11.1 g/dl (12.0-15.5); LYMPH # 1.1 10^3/uL (1.5-5.0); LYMPH % 6.2 % (24.0-44.0); MEAN CORPUSCULAR HEMOGLOBIN 24.4 pg (27.0-33.0); MEAN CORPUSCULAR HGB CONC 28.4 g/dl (32.0-36.5); MEAN CORPUSCULAR VOLUME 85.9 fl (80.0-96.0); MONO # 0.6 10^3/uL (0.0-0.8); MONO % 3.3 % (2.0-8.0); NEUTROPHILS % 87.6 % (36.0-66.0); PLATELET COUNT, AUTOMATED 353 10^3/uL (150-450); RED BLOOD COUNT 4.55 10^6/uL (4.00-5.40); WHITE BLOOD COUNT 18.2 10^3/uL (4.0-10.0)
[2024-04-30 09:19] LABS: BLOOD UREA NITROGEN 18 MG/DL (9-23); CALCIUM LEVEL 8.7 MG/DL (8.3-10.6); CARBON DIOXIDE LEVEL 35 MMOL/L (20-31); CHLORIDE LEVEL 106 MMOL/L (98-107); CREATININE FOR GFR 0.58 MG/DL (0.55-1.30); GLOMERULAR FILTRATION RATE > 60.0 (>32); GLUCOSE, FASTING 98 MG/DL (74-106); POTASSIUM SERUM 3.9 MMOL/L (3.5-5.1); SODIUM LEVEL 151 MMOL/L (136-145)
[2024-04-30] MEDS: D5W 1,000 ML IV SCH (10:34)
[2024-04-30 13:49] LABS: PROCALCITONIN 0.26 ng/ml
[2024-05-01] VITALS (10 sets, daily range): BP systolic 117–162; BP diastolic 63–78; TEMP 97.3–99; O2SAT 66–99
[2024-05-01] MEDS: FUROSEMIDE 40MG/4ML VIAL IV ONE (00:33)
[2024-05-01] MEDS: IPRATROPIUM 0.5MG/ALBUTEROL 2.5MG INH SOL UD 3ML (DUONEB) NEB PRN (03:50)
[2024-05-01 08:36] LABS: BASO # 0.1 10^3/uL (0.0-0.2); BASO % 0.4 % (0.0-1.0); EOS % 0.1 % (0.0-3.0); HEMATOCRIT 39.2 % (36.0-47.0); HEMOGLOBIN 11.3 g/dl (12.0-15.5); LYMPH # 0.8 10^3/uL (1.5-5.0); LYMPH % 4.5 % (24.0-44.0); MEAN CORPUSCULAR HEMOGLOBIN 24.4 pg (27.0-33.0); MEAN CORPUSCULAR HGB CONC 28.8 g/dl (32.0-36.5); MEAN CORPUSCULAR VOLUME 84.7 fl (80.0-96.0); MONO # 0.6 10^3/uL (0.0-0.8); MONO % 3.9 % (2.0-8.0); NEUTROPHILS # 14.7 10^3/uL (1.5-8.5); NEUTROPHILS % 88.7 % (36.0-66.0); PLATELET COUNT, AUTOMATED 324 10^3/uL (150-450); RED BLOOD COUNT 4.63 10^6/uL (4.00-5.40); WHITE BLOOD COUNT 16.5 10^3/uL (4.0-10.0)
[2024-05-01 09:05] LABS: BLOOD UREA NITROGEN 16 MG/DL (9-23); CALCIUM LEVEL 8.2 MG/DL (8.3-10.6); CARBON DIOXIDE LEVEL 31 MMOL/L (20-31); CHLORIDE LEVEL 106 MMOL/L (98-107); CREATININE FOR GFR 0.56 MG/DL (0.55-1.30); GLOMERULAR FILTRATION RATE > 60.0 (>32); GLUCOSE, FASTING 92 MG/DL (74-106); MAGNESIUM LEVEL 1.8 MG/DL (1.8-2.4); POTASSIUM SERUM 4.7 MMOL/L (3.5-5.1); SODIUM LEVEL 147 MMOL/L (136-145)
[2024-05-02] VITALS (8 sets, daily range): BP systolic 118–143; BP diastolic 60–66; TEMP 97.2–99.1; O2SAT 89–95
[2024-05-02 07:20] LABS: BASO % 0.2 % (0.0-1.0); EOS # 0.1 10^3/uL (0.0-0.5); EOS % 0.7 % (0.0-3.0); HEMATOCRIT 38.2 % (36.0-47.0); LYMPH # 0.9 10^3/uL (1.5-5.0); LYMPH % 6.8 % (24.0-44.0); MEAN CORPUSCULAR HEMOGLOBIN 24.1 pg (27.0-33.0); MEAN CORPUSCULAR HGB CONC 28.8 g/dl (32.0-36.5); MEAN CORPUSCULAR VOLUME 83.8 fl (80.0-96.0); MONO # 0.6 10^3/uL (0.0-0.8); MONO % 4.8 % (2.0-8.0); NEUTROPHILS # 11.2 10^3/uL (1.5-8.5); NEUTROPHILS % 85.8 % (36.0-66.0); PLATELET COUNT, AUTOMATED 320 10^3/uL (150-450); RED BLOOD COUNT 4.56 10^6/uL (4.00-5.40); WHITE BLOOD COUNT 13.1 10^3/uL (4.0-10.0)
[2024-05-02 07:50] LABS: BLOOD UREA NITROGEN 14 MG/DL (9-23); CALCIUM LEVEL 8.4 MG/DL (8.3-10.6); CARBON DIOXIDE LEVEL 37 MMOL/L (20-31); CHLORIDE LEVEL 107 MMOL/L (98-107); CREATININE FOR GFR 0.57 MG/DL (0.55-1.30); GLOMERULAR FILTRATION RATE > 60.0 (>32); GLUCOSE, FASTING 94 MG/DL (74-106); MAGNESIUM LEVEL 1.9 MG/DL (1.8-2.4); POTASSIUM SERUM 3.5 MMOL/L (3.5-5.1); SODIUM LEVEL 150 MMOL/L (136-145)
[2024-05-02] MEDS: D5W 1,000 ML IV SCH (09:49)
[2024-05-02] MEDS: LevoFLOXacin 750 MG TABLET PO SCH (13:31)
[2024-05-02] MEDS: DOXYCYCLINE HYCLATE 100MG TABLET PO SCH (20:22)
[2024-05-03] VITALS (7 sets, daily range): BP systolic 109–157; BP diastolic 55–83; PULSE 87; TEMP 97.2–98.4; O2SAT 89–95
[2024-05-03 06:22] LABS: BASO # 0.1 10^3/uL (0.0-0.2); BASO % 0.5 % (0.0-1.0); EOS # 0.1 10^3/uL (0.0-0.5); EOS % 0.8 % (0.0-3.0); HEMATOCRIT 36.6 % (36.0-47.0); HEMOGLOBIN 10.6 g/dl (12.0-15.5); LYMPH # 0.8 10^3/uL (1.5-5.0); LYMPH % 8.5 % (24.0-44.0); MEAN CORPUSCULAR HEMOGLOBIN 24.1 pg (27.0-33.0); MEAN CORPUSCULAR VOLUME 83.4 fl (80.0-96.0); MONO # 0.6 10^3/uL (0.0-0.8); MONO % 5.8 % (2.0-8.0); NEUTROPHILS # 7.8 10^3/uL (1.5-8.5); NEUTROPHILS % 81.2 % (36.0-66.0); PLATELET COUNT, AUTOMATED 308 10^3/uL (150-450); RED BLOOD COUNT 4.39 10^6/uL (4.00-5.40); WHITE BLOOD COUNT 9.6 10^3/uL (4.0-10.0)
[2024-05-03 06:51] LABS: BLOOD UREA NITROGEN 12 MG/DL (9-23); CALCIUM LEVEL 8.1 MG/DL (8.3-10.6); CARBON DIOXIDE LEVEL 36 MMOL/L (20-31); CHLORIDE LEVEL 103 MMOL/L (98-107); CREATININE FOR GFR 0.54 MG/DL (0.55-1.30); GLOMERULAR FILTRATION RATE > 60.0 (>32); GLUCOSE, FASTING 80 MG/DL (74-106); MAGNESIUM LEVEL 1.8 MG/DL (1.8-2.4); POTASSIUM SERUM 3.4 MMOL/L (3.5-5.1); SODIUM LEVEL 146 MMOL/L (136-145)
[2024-05-03] MEDS: FUROSEMIDE 40MG/4ML VIAL IV ONE (08:44)
[2024-05-03] MEDS: POTASSIUM CHLORIDE 10MEQ SR TABLET PO ONE (12:00)
[2024-05-03 15:47] LABS: URINE STREP PNEUMONIAE ANTIGEN NOT DETECTED (NOT DETECT)
[2024-05-04] VITALS (9 sets, daily range): BP systolic 99–138; BP diastolic 53–62; PULSE 72–79; TEMP 97.6–98.2; O2SAT 88–97
[2024-05-04 05:33] LABS: BASO % 0.5 % (0.0-1.0); EOS # 0.1 10^3/uL (0.0-0.5); EOS % 0.7 % (0.0-3.0); HEMATOCRIT 38.2 % (36.0-47.0); HEMOGLOBIN 10.8 g/dl (12.0-15.5); LYMPH # 1.1 10^3/uL (1.5-5.0); MEAN CORPUSCULAR HEMOGLOBIN 23.9 pg (27.0-33.0); MEAN CORPUSCULAR HGB CONC 28.3 g/dl (32.0-36.5); MEAN CORPUSCULAR VOLUME 84.7 fl (80.0-96.0); MONO # 0.5 10^3/uL (0.0-0.8); MONO % 5.7 % (2.0-8.0); NEUTROPHILS # 6.9 10^3/uL (1.5-8.5); NEUTROPHILS % 78.3 % (36.0-66.0); PLATELET COUNT, AUTOMATED 290 10^3/uL (150-450); RED BLOOD COUNT 4.51 10^6/uL (4.00-5.40); WHITE BLOOD COUNT 8.8 10^3/uL (4.0-10.0)
[2024-05-04 06:07] LABS: BLOOD UREA NITROGEN 16 MG/DL (9-23); CALCIUM LEVEL 8.2 MG/DL (8.3-10.6); CARBON DIOXIDE LEVEL 38 MMOL/L (20-31); CHLORIDE LEVEL 101 MMOL/L (98-107); CREATININE FOR GFR 0.64 MG/DL (0.55-1.30); GLOMERULAR FILTRATION RATE > 60.0 (>32); GLUCOSE, FASTING 90 MG/DL (74-106); MAGNESIUM LEVEL 1.6 MG/DL (1.8-2.4); POTASSIUM SERUM 3.7 MMOL/L (3.5-5.1); SODIUM LEVEL 145 MMOL/L (136-145)
[2024-05-04] MEDS: MAG SULF 1GM/100ML (MAG RUN) 1 GM in IV 1 EA IV SCH (08:53)
[2024-05-04] MEDS: DOCUSATE SOD LIQ 100MG/10ML UDC PO SCH (11:17)
[2024-05-04] MEDS: OMEPRAZOLE/SODIUM BICARB 20-840MG 10ML ORAL SYRINGE PO SCH (11:18)
[2024-05-04] MEDS: guaiFENesin SYRUP 200MG 10ML UDC PO PRN (20:45)
[2024-05-05] VITALS (8 sets, daily range): BP systolic 99–149; BP diastolic 52–77; PULSE 79–80; TEMP 97.1–99.1; O2SAT 87–100
[2024-05-05 07:39] LABS: BLOOD UREA NITROGEN 13 MG/DL (9-23); CALCIUM LEVEL 8.2 MG/DL (8.3-10.6); CARBON DIOXIDE LEVEL > 40.0 MMOL/L (20-31); CHLORIDE LEVEL 102 MMOL/L (98-107); CREATININE FOR GFR 0.68 MG/DL (0.55-1.30); GLOMERULAR FILTRATION RATE > 60.0 (>32); GLUCOSE, FASTING 82 MG/DL (74-106); POTASSIUM SERUM 4.4 MMOL/L (3.5-5.1); SODIUM LEVEL 145 MMOL/L (136-145)
[2024-05-05 08:07] LABS: BASO % 0.5 % (0.0-1.0); EOS # 0.1 10^3/uL (0.0-0.5); EOS % 1.6 % (0.0-3.0); HEMATOCRIT 37.1 % (36.0-47.0); HEMOGLOBIN 10.5 g/dl (12.0-15.5); LYMPH # 1.2 10^3/uL (1.5-5.0); LYMPH % 18.3 % (24.0-44.0); MEAN CORPUSCULAR HEMOGLOBIN 23.9 pg (27.0-33.0); MEAN CORPUSCULAR HGB CONC 28.3 g/dl (32.0-36.5); MEAN CORPUSCULAR VOLUME 84.5 fl (80.0-96.0); MONO # 0.4 10^3/uL (0.0-0.8); MONO % 6.3 % (2.0-8.0); NEUTROPHILS # 4.5 10^3/uL (1.5-8.5); NEUTROPHILS % 71.2 % (36.0-66.0); PLATELET COUNT, AUTOMATED 283 10^3/uL (150-450); RED BLOOD COUNT 4.39 10^6/uL (4.00-5.40); WHITE BLOOD COUNT 6.3 10^3/uL (4.0-10.0)
[2024-05-05] MEDS: predniSONE 20 MG TAB PO SCH (09:43)
[2024-05-05] MEDS: FUROSEMIDE 20 MG TAB PO SCH (14:04)
[2024-05-06] VITALS (10 sets, daily range): BP systolic 98–132; BP diastolic 52–76; TEMP 97–97.9; O2SAT 83–96
[2024-05-06 06:46] LABS: HEMATOCRIT 34.3 % (36.0-47.0); HEMOGLOBIN 9.8 g/dl (12.0-15.5); MEAN CORPUSCULAR HEMOGLOBIN 23.7 pg (27.0-33.0); MEAN CORPUSCULAR HGB CONC 28.6 g/dl (32.0-36.5); MEAN CORPUSCULAR VOLUME 83.1 fl (80.0-96.0); PLATELET COUNT, AUTOMATED 288 10^3/uL (150-450); RED BLOOD COUNT 4.13 10^6/uL (4.00-5.40); WHITE BLOOD COUNT 6.9 10^3/uL (4.0-10.0)
[2024-05-06 07:13] LABS: BLOOD UREA NITROGEN 15 MG/DL (9-23); CALCIUM LEVEL 8.2 MG/DL (8.3-10.6); CARBON DIOXIDE LEVEL > 40.0 MMOL/L (20-31); CHLORIDE LEVEL 102 MMOL/L (98-107); CREATININE FOR GFR 0.62 MG/DL (0.55-1.30); GLOMERULAR FILTRATION RATE > 60.0 (>32); GLUCOSE, FASTING 78 MG/DL (74-106); MAGNESIUM LEVEL 1.8 MG/DL (1.8-2.4); SODIUM LEVEL 143 MMOL/L (136-145)
[2024-05-06 07:29] LABS: ANISOCYTOSIS 1+; ATYPICAL LYMPH 5 % (0-5); EOSINOPHILS 1 % (0-3); LYMPHOCYTES 18 % (16-44); MONOCYTES 4 % (0-5); NEUTROPHILS 72 % (28-66); PLATELET ESTIMATE NORMAL (NORMAL)
[2024-05-06 07:30] LABS: POIKILOCYTOSIS 1+
[2024-05-06 19:17] LABS: HEMATOCRIT 33.6 % (36.0-47.0)
[2024-05-06 20:24] LABS: HEMOGLOBIN 9.7 g/dl (12.0-15.5)
[2024-05-06 22:14] LABS: KETONE, URINE AUTO RFX NEGATIVE (NEGATIVE); LEUKOCYTE ESTERASE UR AUTO RFX NEGATIVE (NEGATIVE); NITRITE, URINE AUTO RFX NEGATIVE (NEGATIVE); RBC, URINE AUTO RFX TNTC /HPF (0-3); SQUAM EPITHELIAL CELL UR AURFX 0 /HPF (0-6); WBC, URINE AUTO RFX 0 /HPF (0-3)
[2024-05-07 00:20] LABS: HEMATOCRIT 31.2 % (36.0-47.0); HEMOGLOBIN 9.4 g/dl (12.0-15.5)
[2024-05-07 03:56] VITALS: BP 112/57; TEMP 97.3; O2SAT 96
[2024-05-07 04:24] LABS: BASO % 0.2 % (0.0-1.0); EOS % 0.5 % (0.0-3.0); HEMATOCRIT 31.9 % (36.0-47.0); HEMOGLOBIN 9.3 g/dl (12.0-15.5); LYMPH # 2.1 10^3/uL (1.5-5.0); MEAN CORPUSCULAR HEMOGLOBIN 24.2 pg (27.0-33.0); MEAN CORPUSCULAR HGB CONC 29.2 g/dl (32.0-36.5); MEAN CORPUSCULAR VOLUME 83.1 fl (80.0-96.0); MONO # 0.4 10^3/uL (0.0-0.8); MONO % 6.3 % (2.0-8.0); NEUTROPHILS # 3.4 10^3/uL (1.5-8.5); NEUTROPHILS % 57.3 % (36.0-66.0); PLATELET COUNT, AUTOMATED 249 10^3/uL (150-450); RED BLOOD COUNT 3.84 10^6/uL (4.00-5.40); WHITE BLOOD COUNT 5.9 10^3/uL (4.0-10.0)
[2024-05-07 04:48] LABS: BLOOD UREA NITROGEN 15 MG/DL (9-23); CALCIUM LEVEL 7.7 MG/DL (8.3-10.6); CARBON DIOXIDE LEVEL 39 MMOL/L (20-31); CHLORIDE LEVEL 102 MMOL/L (98-107); CREATININE FOR GFR 0.57 MG/DL (0.55-1.30); GLOMERULAR FILTRATION RATE > 60.0 (>32); GLUCOSE, FASTING 79 MG/DL (74-106); MAGNESIUM LEVEL 1.8 MG/DL (1.8-2.4); POTASSIUM SERUM 3.6 MMOL/L (3.5-5.1); SODIUM LEVEL 144 MMOL/L (136-145)
[2024-05-07 08:00] VITALS: BP 142/67; TEMP 98.4; O2SAT 93
[2024-05-07 12:00] VITALS: BP 121/59; TEMP 98.8; O2SAT 90
[2024-05-07 16:03] VITALS: BP 129/60; TEMP 99; O2SAT 90
[2024-05-07 19:44] VITALS: BP 110/55; TEMP 98; O2SAT 94
[2024-05-07 23:42] VITALS: BP 104/51; TEMP 97.7; O2SAT 92
[2024-05-08] VITALS (17 sets, daily range): BP systolic 101–166; BP diastolic 57–76; TEMP 97–99.2; O2SAT 87–99
[2024-05-08 04:32] LABS: BASO % 0.2 % (0.0-1.0); EOS % 0.1 % (0.0-3.0); HEMATOCRIT 30.7 % (36.0-47.0); HEMOGLOBIN 9.1 g/dl (12.0-15.5); LYMPH # 2.1 10^3/uL (1.5-5.0); LYMPH % 23.4 % (24.0-44.0); MEAN CORPUSCULAR HEMOGLOBIN 24.7 pg (27.0-33.0); MEAN CORPUSCULAR HGB CONC 29.6 g/dl (32.0-36.5); MEAN CORPUSCULAR VOLUME 83.2 fl (80.0-96.0); MONO # 0.4 10^3/uL (0.0-0.8); NEUTROPHILS # 6.2 10^3/uL (1.5-8.5); NEUTROPHILS % 70.7 % (36.0-66.0); PLATELET COUNT, AUTOMATED 237 10^3/uL (150-450); RED BLOOD COUNT 3.69 10^6/uL (4.00-5.40); WHITE BLOOD COUNT 8.8 10^3/uL (4.0-10.0)
[2024-05-08 04:57] LABS: BLOOD UREA NITROGEN 15 MG/DL (9-23); CALCIUM LEVEL 7.9 MG/DL (8.3-10.6); CARBON DIOXIDE LEVEL > 40.0 MMOL/L (20-31); CHLORIDE LEVEL 102 MMOL/L (98-107); CREATININE FOR GFR 0.52 MG/DL (0.55-1.30); GLOMERULAR FILTRATION RATE > 60.0 (>32); GLUCOSE, FASTING 76 MG/DL (74-106); POTASSIUM SERUM 3.7 MMOL/L (3.5-5.1); SODIUM LEVEL 145 MMOL/L (136-145)
[2024-05-08] MEDS ORDERED: BARIUM SULFATE 700 MG TABLET (E-Z-DISK) As Ordered ONE (07:47)
[2024-05-08] MEDS ORDERED: VARIBAR NECTAR 40% w/v 240ML SUSP BTL As Ordered ONE (07:47)
[2024-05-08] MEDS ORDERED: VARIBAR PUDDING 40% w/v 230ML TUBE As Ordered ONE (07:47)
[2024-05-08] MEDS ORDERED: E-Z-PAQUE 96% w/w SUSP 176GM BTL As Ordered ONE (07:47)
[2024-05-08] MEDS: predniSONE 10MG TAB PO SCH (08:09)
[2024-05-08] MEDS ORDERED: PRED10TA2 PO (14:55)
[2024-05-08] MEDS ORDERED: IPRA0.00 NEB (14:55)
[2024-05-08] MEDS ORDERED: DOCU5LIQ PO (14:55)
[2024-05-08] MEDS ORDERED: BUDE0.5S6 NEB (14:55)
[2024-05-08] MEDS ORDERED: GUAI100S51 PO (14:55)
[2024-05-09 04:39] VITALS: BP 129/60; TEMP 97.3; O2SAT 98
[2024-05-09 04:55] VITALS: O2SAT 99
[2024-05-09 07:30] VITALS: BP 135/62; TEMP 98.7; O2SAT 99
== END 2024-05-09 12:23 | DRG 871 ==
LOC: M ED 13:08 → EDBD 13:08 → M ED INP 16:21 → EEVIPCON 16:21 → M PCU 21:06
PROVIDERS: ADMIT Internal Medicine; ATTEND Internal Medicine
DX: A41.9 Sepsis, unspecified organism (principal); J96.21 Acute and chronic respiratory failure with hypoxia; J18.9 Pneumonia, unspecified organism; I24.89 Other forms of acute ischemic heart disease; N39.0 Urinary tract infection, site not specified; F05 Delirium due to known physiological condition; J90 Pleural effusion, not elsewhere classified; E87.0 Hyperosmolality and hypernatremia; J44.0 Chronic obstructive pulmonary disease with (acute) lower respiratory infection; J44.1 Chronic obstructive pulmonary disease with (acute) exacerbation; I50.32 Chronic diastolic (congestive) heart failure; E03.9 Hypothyroidism, unspecified; E11.9 Type 2 diabetes mellitus without complications; I11.0 Hypertensive heart disease with heart failure; Z99.81 Dependence on supplemental oxygen; E83.42 Hypomagnesemia; K21.9 Gastro-esophageal reflux disease without esophagitis; B96.1 Klebsiella pneumoniae [K. pneumoniae] as the cause of diseases classified elsewhere; R13.10 Dysphagia, unspecified; R31.0 Gross hematuria; R33.9 Retention of urine, unspecified; F03.90 Unspecified dementia, unspecified severity, without behavioral disturbance, psychotic disturbance, mood disturbance, and anxiety; I72.8 Aneurysm of other specified arteries; Z87.891 Personal history of nicotine dependence; Z79.899 Other long term (current) drug therapy; Z88.8 Allergy status to other drugs, medicaments and biological substances; Z66 Do not resuscitate